=== PATIENT | male | born 2000 | race Caucasian/White ===

== ENCOUNTER 2018-06-29 10:09 | Emergency (ER) | payer MEDICAID, SELFPAY ==
[2018-06-29 10:15] VITALS: BP 120/63; PULSE 88; RESP 16; TEMP 36.7; O2SAT 98
--- NOTE | 2018-06-29 10:17 | DI.REPORT_ITS ---
SYMPTOM/DIAGNOSIS: BLUNT TRAUMA TO OUTSTRETCHED HAND. PAIN AT MCP, DIFFUSE WRIST, MED ELBOW LEFT FOREARM: Two views. No priors. No bone or joint abnormality is identified. The soft tissues are unremarkable IMPRESSION: Negative examination. LEFT WRIST: Four views. No acute fracture or dislocation is identified. The soft tissues are unremarkable. IMPRESSION: Negative examination.
[2018-06-29] MEDS: Ibuprofen 800 MG TAB PO (10:20)
--- NOTE | 2018-06-29 10:21 | ED.GENADUL_ITS ---
Disposition Clinical Impression: Sprain of other part of left wrist and hand, initial encounter Disposition: HOME Condition: Good Instructions: Wrist Sprain (ED) Additional Instructions: May remove wrist splint for bathing. Apply ice and use Tylenol and/or ibuprofen as needed for pain. Please follow-up with orthopedics. Call the office tomorrow at [phone]. See enclosed work note. Forms: Work Release Medical Decision Making - Radiology Data Radiology results: report reviewed, image reviewed - Medical Decision Making 17-year-old male with left wrist pain after blunt trauma to an outstretched left hand while sliding into base while playing softball 3 days ago. Diffusely tender along the affected joint and with mild medial left elbow tenderness. Patient given ibuprofen and ice, referred for x-ray. Reviewed x-rays with Dr. Cantrell. No evidence of malalignment or fracture. 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 I will place in removable wrist splint. Given the history of the injury I do feel it is reasonable he be followed up in orthopedics to ensure no ligamentous injury. History of Present Illness - General Chief complaint: Orthopedic Stated complaint: WRIST INJURY Time Seen by Provider: 06/29/18 10:14 Source: patient, RN notes reviewed Mode of arrival: ambulatory Limitations: no limitations - History of Present Illness Initial comments: Left wrist pain: 17-year-old male states that he was playing softball on Thursday. He was sliding into base with his left hand outstretched behind him on the opposing player fell on his left wrist and he felt a pop. Since that time he has had pain at his wrist that is worse with movement. It is, achy, constant, nonradiating. Improved with rest. There has been no associated numbness or tingling. He did not injure himself in any other way. - Related Data Lisdexamfetamine [Vyvanse] 1 tab-cap PO DAILY #30 tab-cap 06/04/18 Lisdexamfetamine [Vyvanse] 50 mg PO DAILY #30 tab-cap 06/04/18 Allergies Allergy/AdvReac Type Severity Reaction Status Date / Time No Known Allergies Allergy Unverified 06/29/18 10:21 Review of Systems Other: 6 systems reviewed, otherwise negative Past Medical History - Past Medical History Medical history: no medical history Surgical history: no surgical history - Social History Alcohol use: none Drug use: none General Exam - General Limitations: no limitations General appearance: alert, in no apparent distress - Head Head exam: Present: atraumatic, normocephalic - Eye Eye exam: Present: PERRL, EOMI - ENT ENT exam: Present: normal exam - Neck Neck exam: Present: normal inspection, full ROM - Respiratory Respiratory exam: Absent: respiratory distress - Extremities Exam Extremities exam: Present: tenderness, normal capillary refill, other (Left wrist is diffusely tender along the metacarpal junction. Mild tenderness left medial elbow. Patient is able to demonstrate index to thumb and okay sign, cross long finger over index, touch fifth digit thumb. Sensation intact throughout. Range of motion is intact but limited by pain. 2+ radial pulse bilateral upper extremity.) - Neurological Exam Neurological exam: Present: alert, oriented X3 - Psychiatric Psychiatric exam: Present: normal affect, normal mood - Skin Skin exam: Present: warm, dry, intact
== END 2018-06-29 11:00 | disposition home or self-care (01) ==
PROVIDERS: Emergency Provider Emergency Medicine; PCP Pediatrics
DX: S63.8X2A Sprain of other part of left wrist and hand, initial encounter (principal); W51.XXXA Accidental striking against or bumped into by another person, initial encounter; Y93.64 Activity, baseball
CPT/HCPCS: 29125; 99284; 73090; 73110; L3908

== ENCOUNTER → 2018-07-14 00:54 | Outpatient (CLI) | payer MEDICAID, SELFPAY ==
--- NOTE | 2018-07-14 11:00 | DI.REPORT_ITS ---
SYMPTOM/DIAGNOSIS: FX SCAPHOID LT WRIST, S62.002a LEFT WRIST MRI: 07/14 MRI examination of the carpus was performed utilizing multi-planar imaging. There is reportedly a clinical suspicion of scaphoid fracture. There is minimally abnormal signal in the scaphoid waist. No linear signal abnormality seen. No cortical signal disruption identified. No deformity of the bone. There is a 7 mm in diameter apparent ganglion cyst projected adjacent to the volar aspect of the radial styloid. No gross ligamentous or tendinous abnormality of the wrist seen. The remainder of the bones show normal signal except for some tiny presumed degenerative cysts of the capitate. CONCLUSION: No evidence of a scaphoid fracture. Minimal signal abnormalities in the scaphoid waist which could represent mild bony trabecular injury.
== END ==
PROVIDERS: PCP Pediatrics; Visit Provider Orthopaedic Surgery
DX: S62.002D Unspecified fracture of navicular [scaphoid] bone of left wrist, subsequent encounter for fracture with routine healing (principal); M67.432 Ganglion, left wrist
CPT/HCPCS: 73221

== ENCOUNTER 2018-08-19 11:31 | Emergency (ER) | payer MEDICAID, SELFPAY ==
[2018-08-19 11:39] VITALS: BP 146/81; PULSE 77; RESP 18; TEMP 37; O2SAT 95
== END 2018-08-19 12:54 ==
PROVIDERS: Emergency Provider Nurse Practitioner Acute Care; PCP Pediatrics
DX: R20.0 Anesthesia of skin (principal); Z53.21 Procedure and treatment not carried out due to patient leaving prior to being seen by health care provider
CPT/HCPCS: 99281

== ENCOUNTER 2018-10-24 20:26 | Emergency (ER) | payer MEDICAID, SELFPAY ==
[2018-10-24 20:31] VITALS: BP 133/67; PULSE 97; RESP 15; TEMP 37; O2SAT 98
--- NOTE | 2018-10-24 20:40 | DI.CT_ITS ---
SYMPTOMS/DIAGNOSIS: HEADACHE 2 WKS, BLURRY VISION CT BRAIN: Noncontrast. No priors. There is a normal hernadez/white matter differentiation. The ventricles are intact. The basilar cisterns are patent. No intracranial hemorrhage, infarct, midline shift or mass effect is identified. There is mucosal thickening seen in the visualized paranasal sinuses. No fluid levels are seen. The mastoid air cells are well pneumatized. The calvarium is intact. IMPRESSION: Paranasal sinusitis. No acute intracranial process.
--- NOTE | 2018-10-24 21:14 | DI.VRAD_ITS ---
EXAM: CT Head Without Intravenous Contrast EXAM DATE/TIME: 10/24/2018 8:43 PM CLINICAL HISTORY: 18 years old, male; Pain; Headache; Headache not specified; Patient HX: NEVAREZ x 2 weeks, blurry vision TECHNIQUE: Axial computed tomography images of the head/brain without intravenous contrast. All CT scans at this facility use at least one of these dose optimization techniques: automated exposure control; mA and/or kV adjustment per patient size (includes targeted exams where dose is matched to clinical indication); or iterative reconstruction. Coronal and sagittal reformatted images were created and reviewed. COMPARISON: No relevant prior studies available. FINDINGS: Brain: Unremarkable. No hemorrhage. No significant white matter disease. No edema. Ventricles: Unremarkable. No ventriculomegaly. Bones/joints: Unremarkable. No acute fracture. Sinuses: Mild mucosal thickening of right and left ethmoid sinuses and left maxillary sinus. No paranasal sinus fluid level. Mastoid air cells: Clear mastoids. Soft tissues: Unremarkable. IMPRESSION: No acute intracranial abnormality. Dictated and Authenticated by: Antony Bills MD. Ordering:BHAVYA SCHNEIDER MD
[2018-10-24] MEDS: Dexamethasone 10 MG/ML VIAL IVP (21:33)
[2018-10-24] MEDS: Ketorolac 15 MG/ML VIAL IVP (21:34)
[2018-10-24] MEDS: diphenhydrAMINE 25 MG CAP PO (21:34)
[2018-10-24] MEDS: Prochlorperazine 10 MG/2 ML VIAL IVP (21:35)
[2018-10-24 21:47] LABS: Abs Immature Grans 0.02 k/cumm (0.0-0.09); Absolute Basophil Count 0.03 k/cumm (0.0-0.2); Absolute Eosinophil Count 0.08 k/cumm (0.0-0.7); Absolute Monocyte Count 1.07 k/cumm (0.11-0.7); Absolute Neutrophil Count 8.11 k/cumm (1.2-6.7); Basophils % 0.3; Eosinophils % 0.7; HCT 42.2 % (40.0-50.0); HGB 14.5 g/dL (13.5-17.5); Immature Grans % 0.2; Lymphocytes % 16.2; Mean Corp. HGB Concentration 34.4 g/dL (32.0-36.0); Mean Corpuscular Hemoglobin 27.7 pg (27.0-33.0); Mean Corpuscular Volume 80.5 fL (80-95); Mean Platelet Volume 10.5 fL (8.0-11.0); Monocytes % 9.6; Platelet Count 262 x1000/uL (130-400); RBC 5.24 m/cumm (4.50-6.00); RBC Distribution Width 12.7 % (11.8-14.1); White Blood Cell Count 11.11 k/cumm (4.4-10.8)
--- NOTE | 2018-10-24 21:59 | W.ED.GENAD ---
Discharge Plan Disposition Patient Disposition: HOME Condition: Good Discharge Details Chief Complaint: Headache Clinical Impression: Sinusitis, Migraine Primary Care Provider: Deniz Terry ED Provider: Galindo Valdez Home Meds and New Rx's Prescriptions: New fluticasone 50 mcg/actuation spray,suspension 2 spray MARTIN DAILY Qty: 9.9 RF: 0 fexofenadine [Adelina Allergy] 60 mg tablet 60 mg PO BID Qty: 20 RF: 0 No Action lisdexamfetamine [Vyvanse] 50 mg capsule 50 mg PO DAILY MDD 1 Qty: 30 RF: 0 lisdexamfetamine [Vyvanse] 70 mg capsule 70 mg PO QAM MDD 1 Qty: 30 RF: 0 Discharge Instructions Instructions: Sinusitis (ED), Migraine Headache (ED) Additional Instructions: Please take the medication as directed. If your headache returns please take 1000 mg of Tylenol, and 800 mg of ibuprofen. If you notice any worsening of your symptoms, or any new symptoms such as vomiting, diarrhea, fever, chills, shortness of breath, chest pain, numbness, weakness, or fainting , please return immediately to the emergency department for reevaluation. Please follow up with your primary care provider as soon as possible for reassessment and reevaluation. As always, it was a pleasure participating in your medical care today. Referrals: Deniz Terry MD [Primary Care Provider] - Discharge Data Discharge Date/Time-TO BE ENTERED AT DEPARTURE: 10/24/18 22:34 Medical Decision Making This is a pleasant 18-year-old male who presents for evaluation of headache, and frontal sinus congestion. Headache has been present for the last few weeks, it is similar to headaches that he gets, but just longer than duration slightly more intense in severity. He also has associated sinus congestion, and some frontal sinus pressure. Physical exam demonstrates no focal neurologic deficits. No evidence of pre-or post septal edema. No evidence of toxic appearance. No fever, or tachycardia. Signs and symptoms are clinically inconsistent with a venous sinus thrombosis. Patient shows no clinical red flags for his headache with no nuchal rigidity, neck stiffness, worst headache of life, or neurologic deficits. Physical exam demonstrates normal neurologic exam with no other significant abnormalities aside for some mild frontal sinus tenderness. Patient has not had neuroimaging in the past. With the nature of his symptoms I do feel that one set of neuroimaging is reasonable. CT scan was performed and demonstrates no evidence of acute process. Patient was given a migraine cocktail, and on reassessment he states that he is feeling much better, his headache has resolved and he would like to go home. I do feel that migraine is a component of his symptomatology however I think that sinusitis is also a component with notable sinus congestion and nasal congestion on exam. We will give the patient instructions for Viviana pot, fluticasone nasal spray, and recommendation for antihistamine use. We discussed red flags for which to return and the patient understands. Diagnosis migraine headache and sinusitis and nasal congestion. I have extensively reviewed the treatment plan and discharge instructions with the patient and their family. I have addressed all patient concerns at this time. The patient and family was made aware of what symptoms to monitor for that would warrant a return to the emergency department. Discussed the plan with the patient and family, they demonstrate verbal understanding and agreement with our assessment and plan at this time. FINDINGS: Brain: Unremarkable. No hemorrhage. No significant white matter disease. No edema. Ventricles: Unremarkable. No ventriculomegaly. Bones/joints: Unremarkable. No acute fracture. Sinuses: Mild mucosal thickening of right and left ethmoid sinuses and left maxillary sinus. No paranasal sinus fluid level. Mastoid air cells: Clear mastoids. Soft tissues: Unremarkable. IMPRESSION: No acute intracranial abnormality. HPI General Date/Time Provider Initiated Documentation: 10/24/18 20:30. HPI Narrative: This is a pleasant 18-year-old male with a past medical history of ADHD, and occasional headaches who presents today for evaluation of headache. Patient states that over the last 3 weeks he has had a mild headache, gradually worsening. It has associated tinnitus, as well as aversion to light and loud noises. It is been made worse as he has developed some congestion in the front of his face, over his frontal and maxillary sinuses. He does admit to mild runny nose and congestion, but denies any cough, chills. Patient describes the headache as the entirety of his head, but now focusing behind the right eye. He admits to some mild pressure. He states that he has had a headache similar to this in the past, just not to this duration or severity. The patient denies any headache red flags of worst headache of life, thunderclap headache, neck stiff, fever, chills, concerning family history of polycystic kidney disease, Marfan syndrome, Emelyn-Danlos syndrome, abdominal aortic aneurysm, aortic dissection, or intracranial aneurysm. Patient denies any other complaints at this time. The patient has taken some Tylenol, and this is mildly improved his symptoms. Patient denies any recent surgeries, or IV or illicit drug use. He denies any other sick contacts. Related Data Home Medications Medication Instructions Recorded Confirmed lisdexamfetamine 50 mg capsule 50 mg PO DAILY #30 cap MDD 1 10/05/18 10/05/18 lisdexamfetamine 70 mg capsule 70 mg PO QAM #30 cap MDD 1 10/05/18 10/05/18 fexofenadine [Adelina Allergy] 60 mg PO BID #20 tab 10/24/18 fluticasone 2 spray MARTIN DAILY #9.9 gm 10/24/18 Previous Rx's Medication Instructions Recorded lisdexamfetamine 50 mg capsule 50 mg PO DAILY #30 cap MDD 1 10/05/18 lisdexamfetamine 70 mg capsule 70 mg PO QAM #30 cap MDD 1 10/05/18 fexofenadine [Adelina Allergy] 60 mg PO BID #20 tab 10/24/18 fluticasone 2 spray MARTIN DAILY #9.9 gm 10/24/18 Allergies Allergy/AdvReac Type Severity Reaction Status Date / Time No Known Allergies Allergy Unverified 10/24/18 20:35 General Stated Complaint: Headache SHAWN: 2 Review of Systems Review of Systems All systems reviewed & are unremarkable except as noted in HPI and below PFSH Attention deficit hyperactivity disorder (ADHD), predominantly hyperactive type (Acute 04/14/17) ADHD (attention deficit hyperactivity disorder) Family History Mother Healthy adult on routine physical examination Father Healthy adult on routine physical examination Circumcision (~10/05/18) Family History Mother Healthy adult on routine physical examination Father Healthy adult on routine physical examination Medical History Attention deficit hyperactivity disorder (ADHD), predominantly hyperactive type (Acute 04/14/17) ADHD (attention deficit hyperactivity disorder) Social History Smoking/Tobacco Use Status: Never Surgical History Circumcision (~10/05/18) Social History Smoking/Tobacco Use Status: Never Exam Narrative Exam Narrative: 1.Const: Well-nourished, Well-developed, appearing stated age 2.Eyes: Eyes: EOMI, PERRL, Peripheral vision intact. No nystagmus. Fundoscopic exam shows normal optic discs and normal vasculature. No external signs of preseptal cellulitis, no redness around the eye, no proptosis. No hyphema, no signs of trauma around the eye, no periorbital emphysema. Visual acuity as documented in chart and is normal bilaterally 3.ENT: Atraumatic external nose and ears. Moist MM. Neck: Symmetric, trachea midline, No thyromegaly. Patient demonstrates good movement of cervical neck. There is no nuchal rigidity, no nuchal tenderness. Patient is able to flex the neck without any difficulty or significant pain. Negative Kernig's and Brudzinski sign. 4.CVS: +S1/S2, No murmurs or gallops. Peripheral pulses 2+ and equal in all extremities. Brisk capillary refill in all extremities. 5.RESP: Unlabored respiratory effort. Clear to auscultation bilaterally. No wheezes rales or rhonchi 6.GI: Soft, Nontender/Nondistended, No hepatosplenomegaly. No guarding or rebound. 7.MSK: Normocephalic/Atraumatic, Extremities w/o deformity or ttp No cyanosis or clubbing, Normal movement of all extremities 8.Skin: Warm, Dry. No rashes or lesions. 9.Neuro: filling machine tender II-XII grossly intact. Sensation grossly intact, no focal neurologic deficits. All 6 cardinal planes of vision are fully intact. No evidence of rotatory or vertical nystagmus. The patient demonstrated a normal [id number], good dexterity. There was no evidence of dysdiadochokinesia. Patient was able to ambulate without difficulty. There was no wide-based gait. Romberg, and [id number] are both normal on testing. Sensation was intact bilaterally as well as muscle strength bilaterally for all extremities. Patient was able to verbalize butter cup with no slurring, or miss pronunciation. 10.Psych: (AAO) x3. Appropriate mood and affect Course Vital Signs Temperature 37.0 C 10/24/18 20:31 Pulse 97 H 10/24/18 20:31 Respiratory Rate 15 12 20:31 Blood Pressure 133/67 12 20:31 Pulse Oximetry 98 10/24/18 20:31 Temperature 37.0 C 10/24/18 20:31 Temperature Source Temporal Artery Scan 10/24/18 20:31 Pulse 97 H 10/24/18 20:31 Respiratory Rate 15 10/24/18 20:31 Respiratory Effort Non-Labored 10/24/18 20:37 Blood Pressure 133/67 10/24/18 20:31 Blood Pressure Position Sitting 10/24/18 20:31 Pulse Oximetry 98 10/24/18 20:31 Oxygen Delivery Method Room Air 10/24/18 20:31 Oxygen Flow Rate 0 10/24/18 20:31 Pain Level 6 10/24/18 20:38 Lab/Test Results Lab/Test Results: Laboratory Tests Range/Units 10/24/18 20:50 WBC (4.4-10.8) k/cumm 11.11 H RBC (4.50-6.00) m/cumm 5.24 Hgb (13.5-17.5) g/dL 14.5 Hct (40.0-50.0) % 42.2 MCV (80-95) fL 80.5 MCH (27.0-33.0) pg 27.7 MCHC (32.0-36.0) g/dL 34.4 RDW (11.8-14.1) % 12.7 Plt Count (130-400) x1000/uL 262 MPV (8.0-11.0) fL 10.5 Immature Gran % 0.2 Neutrophils % 73.0 Lymphocytes % 16.2 Monocytes % 9.6 Eosinophils % 0.7 Basophils % 0.3 Absolute Neutrophils (1.2-6.7) k/cumm 8.11 H Absolute Lymphocytes (1.2-3.4) k/cumm 1.80 Absolute Monocytes (0.11-0.7) k/cumm 1.07 H Absolute Eosinophils (0.0-0.7) k/cumm 0.08 Absolute Basophils (0.0-0.2) k/cumm 0.03
[2018-10-24 22:00] LABS: ALT 22 U/L (12-78); AST 17 U/L (15-37); Albumin 4.2 g/dL (3.4-5.0); Alkaline Phosphatase 113 U/L (46-116); Anion Gap 10.4 mmol/L (3-11); BUN 14 mg/dL (7-18); Bilirubin, Total 0.5 mg/dL (0.2-1.0); CO2 28.6 mmol/L (21.0-32.0); CREATININE 1.05 mg/dL (0.70-1.30); Calcium 8.8 mg/dL (8.5-10.1); Chloride 101 mmol/L (98-107); Glucose 100 mg/dL (70-100); Potassium 3.2 mmol/L (3.5-5.1); Sodium 140 mmol/L (136-145); Total Protein 8.1 g/dL (6.4-8.2)
[2018-10-24 22:21] VITALS: BP 121/65; PULSE 95; RESP 15; TEMP 37; O2SAT 98
== END 2018-10-24 22:34 | disposition home or self-care (01) ==
PROVIDERS: Emergency Provider Student in an Organized Health Care Education/Training Program; PCP Pediatrics
DX: J01.90 Acute sinusitis, unspecified (principal); G43.909 Migraine, unspecified, not intractable, without status migrainosus; H93.19 Tinnitus, unspecified ear
CPT/HCPCS: 36415; 80053; 96374; 96375; 99284; 70450; 85025; 99285; J0780; J1100; J1885

== ENCOUNTER 2019-06-21 13:52 | Outpatient (CLI) | payer MEDICAID, SELFPAY ==
--- NOTE | 2019-06-21 15:30 | DI.RAD_ITS ---
SYMPTOMS/DIAGNOSIS: HYPEREXTENSION INJURY OF RIGHT WRIST, PAIN, M25.531 RIGHT WRIST: Three views. No priors. There is a fracture seen in the mid shaft of the right 5th metacarpal. The fracture shows mild volar angulation. There is a callus formation about the fracture consistent with interval healing. No acute fracture or dislocation is identified. No radiopaque foreign bodies are seen in the soft tissues. IMPRESSION: 1. No acute fracture. 2. Healing right 5th metacarpal fracture.
== END 2019-06-21 14:12 ==
PROVIDERS: PCP Family Medicine; Visit Provider Nurse Practitioner Family
DX: M25.531 Pain in right wrist (principal); S62.356D Nondisplaced fracture of shaft of fifth metacarpal bone, right hand, subsequent encounter for fracture with routine healing
CPT/HCPCS: 73110

== ENCOUNTER 2019-07-25 13:03 | Emergency (ER) | payer MEDICAID, SELFPAY ==
[2019-07-25 13:08] VITALS: BP 117/70; PULSE 86; RESP 16; TEMP 36.9; O2SAT 97
--- NOTE | 2019-07-25 13:41 | ED.GENADUL_ITS ---
Discharge Plan Disposition Patient Disposition: AGAINST MEDICAL ADVICE Condition: Fair Discharge Details Chief Complaint: Cellulitis Clinical Impression: Neck pain Primary Care Provider: Tom Hastings ED Provider: Yadira Jacobs Home Meds and New Rx's Prescriptions: New doxycycline hyclate 100 mg capsule 100 mg PO BID Qty: 19 RF: 0 Continued Vyvanse 70 mg capsule 70 mg PO DAILY MDD 120mg Qty: 30 RF: 0 Vyvanse 50 mg capsule 50 mg PO DAILY MDD 120mg Qty: 30 RF: 0 No Action gabapentin 300 mg capsule 300 mg PO TID Qty: 30 RF: 0 clindamycin HCl 150 mg capsule 450 mg PO TID 10 Days Qty: 90 RF: 0 prednisone 50 mg tablet 50 mg PO DAILY Qty: 7 RF: 0 Discharge Instructions Instructions: Abscess (ED), Neck Pain (ED) Additional Instructions: You have elected to leave the emergency department AGAINST MEDICAL ADVICE. The risks of doing so are and permanent disability. You may return to the emergency department for further evaluation and treatment at any time if you change your mind. Please return immediately to the emergency department if you develop any new or worsening symptoms or if you become otherwise concerned. It is extremely important that you call soon as possible to make an appointment to be seen in follow-up for this visit by your primary care doctor. Referrals: Tom Hastings [Primary Care Provider] - Discharge Data Discharge Date/Time-TO BE ENTERED AT DEPARTURE: 07/25/19 15:44 Medical Decision Making Davide Adrian 18 y/o man with history of ADHD who presented to the emergency department with rash and pain to her neck after sustaining a cut from an unknown source approximate 4 days ago. On exam patient is very well and nontoxic appearing. There is mild erythema and edema of the left earlobe, earlobe is tender to palpation, no tenderness or overlying skin changes of the cartilage. Bilateral TMs and canals are normal. There is tenderness and induration of the neck just inferior to the ear with mild overlying erythema. No apparent abscess on inspection. TMJ is nontender to palpation. There is no trismus. No mastoid tenderness to palpation bilaterally. Oropharynx is normal without edema or lesion. Full range of motion of the neck, mild pain with lateral rotation to the left. Neck is supple without meningismus. Concern for cellulitis versus potential abscess of the underlying soft tissue. Exam/history is not consistent with impending airway compromise, sepsis, meningitis, mastoiditis, acute emergent intracranial process. [id number] bedside ultrasound shows approximately 1 x 3 cm fluid collection without blood flow and a depth of 1 cm in the neck just inferior to the earlobe. Concern for possible deep space infection given no clear skin abscess on exam, sore throat, pain with neck motion. Plan for CT soft tissue neck, screening labs, IV placement. Patient states that he is very hungry and would prefer to go home and eat. He states that he may come back at some time for further evaluation if he is not feeling better. I had a lengthy discussion with the patient stressing the risks of leaving AGAINST MEDICAL ADVICE, including and permanent disability. Patient verbalized understanding of the risks and continue to wish to leave, stating that he would like to get food. I did offer patient food here, which she declined and continues to wish to leave AGAINST MEDICAL ADVICE. Patient has decision-making capacity. I had a lengthy discussion with the patient regarding return to emergency department precautions, that he may return to emergency department anytime if he changes his mind. And importance of outpatient follow- up. Plan for doxycycline. Patient verbalized understanding of the plan. All questions were answered. Patient was discharged home with clear plan for outpatient follow-up. Medical Records Medical records reviewed: Yes I reviewed the patient's medical records. Lab Data Lab results reviewed: Yes I reviewed the patient's lab results. Laboratory Tests Range/Units 07/25/19 07/25/19 15:16 15:16 WBC Cancelled RBC Cancelled Hgb Cancelled Hct Cancelled MCV Cancelled MCH Cancelled MCHC Cancelled RDW Cancelled Plt Count Cancelled MPV Cancelled Immature Gran % Cancelled Neutrophils % Cancelled Band Neutrophils % Cancelled Lymphocytes % Cancelled Atypical Lymphs % Cancelled Monocytes % Cancelled Eosinophils % Cancelled Basophils % Cancelled Metamyelocytes % Cancelled Myelocytes % Cancelled Promyelocytes % Cancelled Absolute Neutrophils Cancelled Absolute Lymphocytes Cancelled Absolute Monocytes Cancelled Absolute Eosinophils Cancelled Absolute Basophils Cancelled Nucleated RBCs Cancelled Differential Comment Cancelled Other Cell Type Cancelled RBC Morphology Cancelled Polychromasia Cancelled Hypochromasia Cancelled Poikilocytosis Cancelled Basophilic Stippling Cancelled Anisocytosis Cancelled Microcytosis Cancelled Macrocytosis Cancelled Spherocytes Cancelled Target Cells Cancelled Tear Drop Cells Cancelled Ovalocytes Cancelled Stomatocytes Cancelled Andre-Eskridge Bodies Cancelled [place] Cells Cancelled Acanthocytes (Spur) Cancelled Schistocytes Cancelled Sodium Cancelled Potassium Cancelled Chloride Cancelled Carbon Dioxide Cancelled Anion Gap Cancelled BUN Cancelled Creatinine Cancelled Estimated GFR/1.73 m2 Cancelled Glucose Cancelled Calcium Cancelled Total Bilirubin Cancelled AST Cancelled ALT Cancelled Alkaline Phosphatase Cancelled Total Protein Cancelled Albumin Cancelled HPI General Mode of arrival: ambulatory . Date/Time Provider Initiated Documentation: 07/25/19 13:41 . Limitations to Documentation: no limitations . Information obtained by: patient, RN notes reviewed and old records reviewed . HPI Narrative: Davide Adrian is a 18 y/o man with history of ADHD presenting to the emergency department with left-sided neck pain. Patient reports that approximately 4 days ago he noticed a cut beneath his left ear. He is unclear what caused the cut to begin with. Patient reports that over the past 4 days he has had progressive aching pain of his neck just inferior to the ear, pain radiates to his left jaw. He has also had pain and redness of his earlobe, and mild sore throat. He denies inner ear pain, drainage from the ear, fevers, vomiting, diarrhea, any other pain, difficulty swallowing, other rash. Has been eating and drinking as usual. Has been going about his daily activities as usual. No recent illness. Related Data Home Medications Medication Instructions Recorded Confirmed lisdexamfetamine 50 mg capsule 50 mg PO DAILY #30 cap MDD 120mg 06/27/19 07/31/19 lisdexamfetamine 70 mg capsule 70 mg PO DAILY #30 cap MDD 120mg 06/27/19 07/31/19 doxycycline hyclate 100 mg PO BID #19 cap 07/25/19 07/31/19 prednisone 50 mg PO DAILY #7 tab 07/26/19 07/31/19 clindamycin HCl 450 mg PO TID 10 Days #90 cap 07/31/19 gabapentin 300 mg PO TID #30 cap 07/31/19 Previous Rx's Medication Instructions Recorded lisdexamfetamine 50 mg capsule 50 mg PO DAILY #30 cap MDD 120mg 06/27/19 lisdexamfetamine 70 mg capsule 70 mg PO DAILY #30 cap MDD 120mg 06/27/19 doxycycline hyclate 100 mg PO BID #19 cap 07/25/19 prednisone 50 mg PO DAILY #7 tab 07/26/19 clindamycin HCl 450 mg PO TID 10 Days #90 cap 07/31/19 gabapentin 300 mg PO TID #30 cap 07/31/19 Allergies Allergy/AdvReac Type Severity Reaction Status Date / Time No Known Allergies Allergy Verified 07/26/19 11:49 General Stated Complaint: Cellulitis SHAWN: 3 Review of Systems Review of Systems Constitutional: denies fevers Eyes: denies eye pain ENT: denies facial pain, dental pain, reports outer left ear pain, left neck pain, sore throat Cardiovascular: denies chest pain Respiratory: denies SOB, cough GI: denies abdominal pain, vomiting, diarrhea : denies flank pain MSK: denies back pain, neck pain, arthralgias, myalgias Skin: reports rash as per HPI Neuro: denies headaches, numbness, weakness [facility] Medical History ADHD (attention deficit hyperactivity disorder) Attention deficit hyperactivity disorder (ADHD), predominantly hyperactive type (Acute 04/14/17) Social History Smoking/Tobacco Use Status: Current every day Tobacco Type: e-cigarettes Quit status: not considering quitting Alcohol Intake: current Alcohol Intake frequency: a few times a week Details: couple beers or twisted teas on the weekends Drug use: Never Substance use type: does not use Adopted: Yes Household members: family Housing: house Pets and animals: No Sexually active: Yes Do you think of yourself as: straight/heterosexual Current gender identity: male Duration: > 90 minutes/day Frequency: daily Yeimi/Adventism: No preference Special yeimi needs: No Seatbelt use: always Helmet use: Yes Do you feel safe at home: Yes Do you feel safe in your relationship?: Yes Exam Narrative Exam Narrative: Constitutional: well and [id number], pleasant, conversing normally HENT: head atraumatic/normocephalic, mucous membranes moist, mild erythema and edema of the left earlobe, earlobe is tender to palpation, no tenderness or overlying skin changes of the cartilage. Bilateral TMs and canals are normal. Tenderness and induration of the neck just inferior to the ear with mild overlying erythema. No apparent abscess on inspection. TMJ is nontender to palpation. There is no trismus. No mastoid tenderness to palpation bilaterally. Oropharynx is normal without edema or lesion Eyes: conjunctiva normal, sclera normal, pupils 3mm b/l Neck: no stridor, trachea midline, full range of motion of the neck, mild pain with lateral rotation to the left. Neck is supple without meningismus Chest: normal inspection Resp: normal work of breathing, LCTAB Cardio: normal rate, normal rhythm, no murmur appreciated Back: normal inspection, no rash Skin: warm, dry, normal color, no rash Neuro: alert, not altered, grossly non-focal, normal tone Ext: Moving all extremities equally Psych: normal mood, normal affect, normal behavior Course Vital Signs Temperature 36.9 C 07/25/19 13:08 Pulse 86 07/25/19 13:08 Respiratory Rate 16 07/25/19 13:08 Blood Pressure 117/70 07/25/19 13:08 Pulse Oximetry 97 07/25/19 13:08 Temperature 36.9 C 07/25/19 13:08 Temperature Source Skin 07/25/19 13:08 Pulse 86 07/25/19 13:08 Respiratory Rate 16 07/25/19 13:08 Respiratory Effort Non-Labored 07/25/19 13:12 Blood Pressure 117/70 07/25/19 13:08 Blood Pressure Position Sitting 07/25/19 13:08 Pulse Oximetry 97 07/25/19 13:08 Oxygen Delivery Method Room Air 07/25/19 13:08 Oxygen Flow Rate 0 07/25/19 13:08 Pain Level 7 07/25/19 13:08
--- NOTE | 2019-07-25 15:34 | NUR.NOTE ---
Nursing Note: made aware pt wants to leave AMA. in to talk to pt.
[2019-07-25 15:38] VITALS: PULSE 65; RESP 16; O2SAT 97
[2019-07-25] MEDS: Doxycycline Hyclate 100 MG CAP (15:38)
== END 2019-07-25 15:44 | disposition left against medical advice (07) ==
PROVIDERS: Emergency Provider Student in an Organized Health Care Education/Training Program; PCP Family Medicine
DX: H60.12 Cellulitis of left external ear (principal); L03.221 Cellulitis of neck; M54.2 Cervicalgia; Z53.29 Procedure and treatment not carried out because of patient's decision for other reasons
CPT/HCPCS: 80053; 99283; 85025

== ENCOUNTER 2019-07-26 11:36 | Emergency (ER) | payer MEDICAID, SELFPAY ==
[2019-07-26 11:46] VITALS: BP 133/44; PULSE 70; RESP 16; TEMP 36.7; O2SAT 98
--- NOTE | 2019-07-26 12:01 | DI.CT_ITS ---
SYMPTOMS/DIAGNOSIS: LEFT NECK SWELLING, PAIN, ? ABSCESS NECK CT: A contrast enhanced exam was performed. The parotid, submandibular and thyroid glands appear normal. No tonsillar or adenoid enlargement is seen. There is no evidence of an abscess. There are mildly enlarged cervical lymph nodes, presumably reactive. The visualized portions of the lungs appear clear. The carotid and vertebral arteries are normal in diameter. The orbits are unremarkable. There is some mucosal thickening of the ethmoid and maxillary sinuses. The mastoid air cells appear clear. IMPRESSION: No evidence of an abscess. Mildly enlarged bilateral cervical lymph nodes are seen.
--- NOTE | 2019-07-26 12:03 | ED.GENADUL_ITS ---
Discharge Plan Disposition Patient Disposition: HOME Condition: Stable Discharge Details Chief Complaint: RashLesion Clinical Impression: Shingles Primary Care Provider: Tom Hastings ED Provider: Derrell Betancur Home Meds and New Rx's Prescriptions: New acyclovir 800 mg tablet 800 mg PO Q4H 7 Days Qty: 42 RF: 0 prednisone 50 mg tablet 50 mg PO DAILY Qty: 7 RF: 0 Continued Vyvanse 70 mg capsule 70 mg PO DAILY MDD 120mg Qty: 30 RF: 0 Vyvanse 50 mg capsule 50 mg PO DAILY MDD 120mg Qty: 30 RF: 0 doxycycline hyclate 100 mg capsule 100 mg PO BID Qty: 19 RF: 0 Discharge Instructions Instructions: [place] (ED) Additional Instructions: if not better within a week see your primary care provider if you feel you are becoming more ill, have difficulty breathing or inability to swallow liquids return to the emergency department Medical Decision Making pt has had left inferior ear/neck pain and some swelling for a few days. Was seen yesterday and was going to have a CT done but left AMA prior to this being done and came back today. He does have vesciles on an erythematous base at the entrance of the left ear canal, no discharge and tm's appera normal. Does have some mild swelling just inferior to the left ear without fluctuance. Suspect shingles but given findings of swelling will image to eval for possible abscess pt's labs unremarkable and Per no acute findings on CT. Will d/c on acylovir and steroids and advised f/u with pcp and return precautions given Differential Diagnosis abscess, shingles Imaging Data Radiologic Study: Attestation: I personally reviewed and interpreted this imaging study as follows: Imaging: CT Scan Radiologist's impression: no acute findings per Lab Data Lab results reviewed: Yes I reviewed the patient's lab results. HPI General Mode of arrival: ambulatory . Date/Time Provider Initiated Documentation: 07/26/19 11:57 . Limitations to Documentation: no limitations . Information obtained by: patient . History of Present Illness 18 year old M presents to the emergency department with the chief complaint of left neck pain/swelling, and is localized to the neck. Patient reports no radiation. Patient started experiencing this day(s) (2) and it has been constant. No relieving factors improve symptom(s), Patient did receive the following treatments prior to arrival, none Related Data Home Medications Medication Instructions Recorded Confirmed lisdexamfetamine 50 mg capsule 50 mg PO DAILY #30 cap MDD 120mg 06/27/19 07/26/19 lisdexamfetamine 70 mg capsule 70 mg PO DAILY #30 cap MDD 120mg 06/27/19 07/26/19 doxycycline hyclate 100 mg PO BID #19 cap 07/25/19 07/26/19 acyclovir 800 mg PO Q4H 7 Days #42 tab 07/26/19 prednisone 50 mg PO DAILY #7 tab 07/26/19 Previous Rx's Medication Instructions Recorded lisdexamfetamine 50 mg capsule 50 mg PO DAILY #30 cap MDD 120mg 06/27/19 lisdexamfetamine 70 mg capsule 70 mg PO DAILY #30 cap MDD 120mg 06/27/19 doxycycline hyclate 100 mg PO BID #19 cap 07/25/19 acyclovir 800 mg PO Q4H 7 Days #42 tab 07/26/19 prednisone 50 mg PO DAILY #7 tab 07/26/19 Allergies Allergy/AdvReac Type Severity Reaction Status Date / Time No Known Allergies Allergy Verified 07/26/19 11:49 General Stated Complaint: RashLesion SHAWN: 3 Review of Systems Review of Systems All systems reviewed & are unremarkable except as noted in HPI and below Constitutional Denies chills, Denies fever(s) and Denies weakness Cardiovascular Denies chest pain and Denies dyspnea Respiratory Denies cough and Denies dyspnea Gastrointestinal Denies abdominal pain, Denies nausea and Denies vomiting Musculoskeletal Denies joint swelling Neurologic Denies weakness [facility] Social History Smoking/Tobacco Use Status: Current every day Tobacco Type: e-cigarettes Quit status: not considering quitting Alcohol Intake: current Details: couple beers or twisted teas on the weekends Drug use: Never Substance use type: does not use Adopted: Yes Household members: family Housing: house Pets and animals: No Sexually active: Yes Do you think of yourself as: straight/heterosexual Current gender identity: male Duration: > 90 minutes/day Frequency: daily Yeimi/Mu-Ism: No preference Special yeimi needs: No Seatbelt use: always Helmet use: Yes Do you feel safe at home: Yes Do you feel safe in your relationship?: Yes Exam Const General: no acute distress Orientation: alert HENMT Head: normal to inspection Ears: TM's normal bilaterally General nose exam: external nose normal Mouth: moist mucous membranes Eyes General: appearance normal, both eyes and all related structures Neck Neck: normal visual inspection Resp Effort & Inspection: normal respiratory effort and able to speak in complete sentences Cardio Rate: regular rate Skin General skin exam: elasticity normal Neuro General: alert and oriented x3 Extrem General: normal to inspection Psych Mental Status: mental status grossly normal Course Vital Signs Temperature 36.7 C 07/26/19 11:46 Pulse 70 07/26/19 11:46 Respiratory Rate 16 07/26/19 11:46 Blood Pressure 133/44 L 07/26/19 11:46 Pulse Oximetry 98 07/26/19 11:46 Temperature 36.7 C 07/26/19 11:46 Temperature Source Skin 07/26/19 11:46 Pulse 70 07/26/19 11:46 Respiratory Rate 16 07/26/19 11:46 Respiratory Effort Non-Labored 07/26/19 11:46 Blood Pressure 133/44 L 07/26/19 11:46 Blood Pressure Position Sitting 07/26/19 11:46 Pulse Oximetry 98 07/26/19 11:46 Oxygen Delivery Method Room Air 07/26/19 11:46 Oxygen Flow Rate 0 07/26/19 11:46 Pain Level 7 07/26/19 11:46
[2019-07-26 12:28] LABS: Abs Immature Grans 0.02 k/cumm (0.0-0.09); Absolute Basophil Count 0.02 k/cumm (0.0-0.2); Absolute Eosinophil Count 0.29 k/cumm (0.0-0.7); Absolute Lymphocyte Count 1.27 k/cumm (1.2-3.4); Absolute Monocyte Count 0.71 k/cumm (0.11-0.7); Basophils % 0.3; Eosinophils % 4.3; HCT 43.2 % (40.0-50.0); HGB 15.1 g/dL (13.5-17.5); Immature Grans % 0.3; Lymphocytes % 18.6; Mean Corpuscular Volume 80.1 fL (80-95); Mean Platelet Volume 9.7 fL (8.0-11.0); Monocytes % 10.4; Neutrophils % 66.1; Platelet Count 226 x1000/uL (130-400); RBC 5.39 m/cumm (4.50-6.00); White Blood Cell Count 6.81 k/cumm (4.4-10.8)
[2019-07-26] MEDS: Normal Saline Flush 10 ML SYR IVP (12:31)
[2019-07-26 12:42] LABS: ALT 27 U/L (16-63); AST 25 U/L (15-37); Albumin 4.4 g/dL (3.4-5.0); Alkaline Phosphatase 91 U/L (46-116); BUN 15 mg/dL (7-18); Bilirubin, Total 0.8 mg/dL (0.2-1.0); CREATININE 1.01 mg/dL (0.70-1.30); Calcium 9.2 mg/dL (8.5-10.1); Chloride 104 mmol/L (98-107); Glucose 92 mg/dL (70-100); Sodium 139 mmol/L (136-145); Total Protein 7.9 g/dL (6.4-8.2)
[2019-07-26] MEDS: Omnipaque 350 MG/ML 100 ML BTL IJ (12:47)
[2019-07-26 14:00] VITALS: BP 123/66; PULSE 61; RESP 14; TEMP 36.9; O2SAT 99
[2019-07-26 14:04] VITALS: BP 123/66; PULSE 61; RESP 14; TEMP 36.9; O2SAT 99
--- NOTE | 2019-07-26 15:31 | DI.VRAD_ITS ---
EXAM: CT Neck With Contrast EXAM DATE/TIME: 07/26/2019 12:46 PM CLINICAL HISTORY: 18 years old, male; Other: Left sided swelling, R/O abscess TECHNIQUE: Imaging protocol: Computed tomography images of the neck with intravenous contrast. Radiation optimization: All CT scans at this facility use at least one of these dose optimization techniques: automated exposure control; mA and/or kV adjustment per patient size (includes targeted exams where dose is matched to clinical indication); or iterative reconstruction. COMPARISON: No relevant prior studies available. FINDINGS: Sinuses: Mild mucosal thickening of the maxillary and ethmoid sinuses is present bilaterally. Nasopharynx: Unremarkable. Oropharynx: Unremarkable. No significant tonsillar enlargement. Hypopharynx: Unremarkable Larynx: Unremarkable. Normal epiglottis. Retropharyngeal space: Normal. No retropharyngeal abscess. Submandibular/Parotid glands: Normal. Glands are normal in size. Thyroid: Normal. No enlarged or calcified nodules. Lymph nodes: Multiple small shotty lymph nodes are present in the anterior and posterior cervical triangles bilaterally. Trachea: Visualized trachea is unremarkable. Lungs: Unremarkable as visualized. Bones/joints: Unremarkable. No acute fracture. Soft tissues: No CT evidence of an abscess in the superficial or deep soft tissues of the neck. IMPRESSION: 1. Multiple small shotty lymph nodes are present in the anterior and posterior cervical triangles bilaterally. 2. No CT evidence of an abscess in the superficial or deep soft tissues of the neck. 3. Mild mucosal thickening of the maxillary and ethmoid sinuses is present bilaterally. Dictated and Authenticated by: Alex Alexandra MD. Ordering:BONNIE Dove MD
== END 2019-07-26 14:10 | disposition home or self-care (01) ==
PROVIDERS: Emergency Provider Emergency Medicine; PCP Family Medicine
DX: B02.9 Zoster without complications (principal)
CPT/HCPCS: 36415; 70491; 80053; 99285; 85025; 99284; J3490

== ENCOUNTER 2019-07-31 22:09 | Emergency (ER) | payer MEDICAID, SELFPAY ==
[2019-07-31 22:13] VITALS: BP 111/81; PULSE 83; RESP 18; TEMP 36.6; O2SAT 98
--- NOTE | 2019-07-31 22:33 | ED.GENADUL_ITS ---
Discharge Plan Disposition Patient Disposition: HOME Condition: Stable Discharge Details Chief Complaint: GenMedical Clinical Impression: Shingles Primary Care Provider: Tom Hastings ED Provider: Derrell Betancur Home Meds and New Rx's Prescriptions: New gabapentin 300 mg capsule 300 mg PO TID Qty: 30 RF: 0 clindamycin HCl 150 mg capsule 450 mg PO TID 10 Days Qty: 90 RF: 0 Continued Vyvanse 70 mg capsule 70 mg PO DAILY MDD 120mg Qty: 30 RF: 0 Vyvanse 50 mg capsule 50 mg PO DAILY MDD 120mg Qty: 30 RF: 0 doxycycline hyclate 100 mg capsule 100 mg PO BID Qty: 19 RF: 0 acyclovir 800 mg tablet 800 mg PO Q4H 7 Days Qty: 42 RF: 0 prednisone 50 mg tablet 50 mg PO DAILY Qty: 7 RF: 0 Discharge Instructions Instructions: Shingles (ED) Additional Instructions: your rash still appears to be shingles follow up as scheduled with your primary care provider if you finish the doxycycline and the ear lobe is still very swollen, red and warm to touch start the clindamycin Medical Decision Making 19 yo male who was put on acyclovir and prednisone for shingles last week comes in with continued rash around left ear lobe. HE states he has crusting that is coming off and some discomfort radiating on the skin out, no fevers or systemic symptoms or vision changes. When Is aw him last he had a vescicular rash just outside entrance to left ear canal. It is now crusted over in this area without vesicles and has mild clear dishcarge from the area, no purulence. The left ear lobe is still red and swollen as well. HE was put on doxy for possible cellulitis at the visit prior to last and is still taking this. I advised this is likely the natural progression of the shingles. I am going to prescribe clindamycin and advised only fill it if redness worsens or not better by the time he finishes doxy and f/u with pcp, return precautions given. No sever epain or crepitus to suggest nec fasc. Differential Diagnosis shingles, cellulitis HPI General Mode of arrival: ambulatory . Date/Time Provider Initiated Documentation: 07/31/19 22:09 . Limitations to Documentation: no limitations . Information obtained by: patient . History of Present Illness 19 year old M presents to the emergency department with the chief complaint of left ear rash, described as moderate, Quality is described as aching and sharp, Patient started experiencing this day(s) (6) and it has been constant. No relieving factors improve symptom(s), No exacerbating factors reported . Related Data Home Medications Medication Instructions Recorded Confirmed lisdexamfetamine 50 mg capsule 50 mg PO DAILY #30 cap MDD 120mg 06/27/19 07/31/19 lisdexamfetamine 70 mg capsule 70 mg PO DAILY #30 cap MDD 120mg 06/27/19 07/31/19 doxycycline hyclate 100 mg PO BID #19 cap 07/25/19 07/31/19 acyclovir 800 mg PO Q4H 7 Days #42 tab 07/26/19 07/31/19 prednisone 50 mg PO DAILY #7 tab 07/26/19 07/31/19 clindamycin HCl 450 mg PO TID 10 Days #90 cap 07/31/19 gabapentin 300 mg PO TID #30 cap 07/31/19 Previous Rx's Medication Instructions Recorded lisdexamfetamine 50 mg capsule 50 mg PO DAILY #30 cap MDD 120mg 06/27/19 lisdexamfetamine 70 mg capsule 70 mg PO DAILY #30 cap MDD 120mg 06/27/19 doxycycline hyclate 100 mg PO BID #19 cap 07/25/19 acyclovir 800 mg PO Q4H 7 Days #42 tab 07/26/19 prednisone 50 mg PO DAILY #7 tab 07/26/19 clindamycin HCl 450 mg PO TID 10 Days #90 cap 07/31/19 gabapentin 300 mg PO TID #30 cap 07/31/19 Allergies Allergy/AdvReac Type Severity Reaction Status Date / Time No Known Allergies Allergy Verified 07/26/19 11:49 General Stated Complaint: GenMedical SHAWN: 4 Review of Systems Review of Systems All systems reviewed & are unremarkable except as noted in HPI and below Constitutional Denies chills and Denies fever(s) Cardiovascular Denies chest pain and Denies dyspnea Respiratory Denies cough and Denies dyspnea Gastrointestinal Denies abdominal pain, Denies nausea and Denies vomiting PFSH Social History Smoking/Tobacco Use Status: Current every day Tobacco Type: e-cigarettes Quit status: not considering quitting Alcohol Intake: current Alcohol Intake frequency: a few times a week Details: couple beers or twisted teas on the weekends Drug use: Never Substance use type: does not use Adopted: Yes Household members: family Housing: house Pets and animals: No Sexually active: Yes Do you think of yourself as: straight/heterosexual Current gender identity: male Duration: > 90 minutes/day Frequency: daily Yeimi/Rastafari: No preference Special yeimi needs: No Seatbelt use: always Helmet use: Yes Do you feel safe at home: Yes Do you feel safe in your relationship?: Yes Exam Const General: no acute distress Orientation: alert HENMT Head: normal to inspection Ears: external ears normal General nose exam: external nose normal Mouth: moist mucous membranes Eyes General: appearance normal, both eyes and all related structures Neck Neck: normal visual inspection Resp Effort & Inspection: normal respiratory effort and able to speak in complete sentences Cardio Rate: regular rate Skin General skin exam: elasticity normal Neuro General: alert and oriented x3 Extrem General: normal to inspection Psych Mental Status: mental status grossly normal Course Vital Signs Temperature 36.6 C 07/31/19 22:13 Pulse 83 07/31/19 22:13 Respiratory Rate 18 07/31/19 22:13 Blood Pressure 111/81 07/31/19 22:13 Pulse Oximetry 98 07/31/19 22:13 Temperature 36.6 C 07/31/19 22:13 Pulse 83 07/31/19 22:13 Respiratory Rate 18 07/31/19 22:13 Respiratory Effort Non-Labored 07/31/19 22:22 Blood Pressure 111/81 07/31/19 22:13 Pulse Oximetry 98 07/31/19 22:13 Pain Level 7 07/31/19 22:13
[2019-07-31 22:43] VITALS: BP 111/81; PULSE 83; RESP 18; O2SAT 98
[2019-07-31] MEDS: Gabapentin 300 MG CAP PO (22:44)
== END 2019-07-31 22:40 | disposition home or self-care (01) ==
PROVIDERS: Emergency Provider Emergency Medicine; PCP Family Medicine
DX: B02.9 Zoster without complications (principal)
CPT/HCPCS: 99283

== ENCOUNTER 2019-09-24 22:27 | Emergency (ER) | payer MEDICAID, SELFPAY ==
[2019-09-24 22:30] VITALS: BP 137/65; PULSE 82; RESP 17; TEMP 37.1; O2SAT 98
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
[2019-09-24] MEDS: HYDROcodone 5/Acetaminophen 325 TAB PO (23:00)
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
[2019-09-25 00:31] VITALS: BP 112/66; PULSE 75; RESP 16; O2SAT 98
== END 2019-09-25 00:35 | disposition home or self-care (01) ==
PROVIDERS: Emergency Provider Student in an Organized Health Care Education/Training Program; PCP Family Medicine
DX: S00.83XA Contusion of other part of head, initial encounter (principal); S06.0X0A Concussion without loss of consciousness, initial encounter; W22.8XXA Striking against or struck by other objects, initial encounter
CPT/HCPCS: 99284; 70450; 72125; 99283; L0172

== ENCOUNTER 2019-12-28 22:11 | Emergency (ER) | payer MEDICAID, SELFPAY ==
[2019-12-28 22:25] VITALS: BP 127/71; PULSE 100; RESP 18; TEMP 36.5; O2SAT 98
--- NOTE | 2019-12-28 22:27 | W.ED.GENAD ---
Discharge Plan Disposition Patient Disposition: HOME Condition: Good Discharge Details Chief Complaint: Orthopedic Clinical Impression: Contusion of hand Primary Care Provider: Tom Hastings ED Provider: Kathy Rodriguez Home Meds and New Rx's Prescriptions: Continued Vyvanse 70 mg capsule 70 mg PO DAILY MDD 120 Qty: 30 RF: 0 Vyvanse 50 mg capsule 50 mg PO DAILY MDD 120mg Qty: 30 RF: 0 Discharge Instructions Instructions: Contusion in Adults (ED) Additional Instructions: Encourage rest, ice, elevation. Tylenol and/or ibuprofen as needed for discomfort. Please follow-up with primary care in 2 weeks if not improving. Please continue with WILY level discomfort as needed. Referrals: Tom Hastings [Primary Care Provider] - Discharge Data Discharge Date/Time-TO BE ENTERED AT DEPARTURE: 12/28/19 23:25 Medical Decision Making Patient is a pleasant 19 year old RHD male presenting toa with c/c of right hand pain. States that he fell on his outstretched hand when he slipped outside. Reports pain over the thenar eminence. Not strike his head, no loss of consciousness. Denies other injury the time of the incident. Does have a small superficial abrasion over the thenar eminence. Reports that tetanus is up-to-date. Patient reports previous fracture to the fifth metacarpal. No numbness or tingling. Exam otherwise normal.Full ROM, normal sensation, ligamentous exam intact, no pain over snuff box. FINDINGS: Bones/joints: No acute fracture. Joint spaces are maintained. Soft tissues: Normal. IMPRESSION: No acute findings. Discussed this findings with the patient. Encourage rest, ice, elevation. Tylenol and/or ibuprofen as needed for discomfort. Advised contusion. He was given return precautions. All his questions and concerns were addressed and he is in agreement this plan. HPI General Mode of arrival: ambulatory. Date/Time Provider Initiated Documentation: 12/28/19 22:26. Limitations to Documentation: no limitations. Information obtained by: patient and RN notes reviewed. History of Present Illness 19 year old M presents to the emergency department with the chief complaint of right hand pain after FOOSH, described as severe, with intensity rated at 9. Quality is described as sharp, and is localized to the right and upper extremity. Patient reports no radiation. Patient started experiencing this minute(s) (30) and it has been constant. Immobilization improves symptom(s), Movement worsens symptoms . Patient notes no other symptoms.. Patient did receive the following treatments prior to arrival, none Related Data Home Medications Medication Instructions Recorded Confirmed lisdexamfetamine 50 mg capsule 50 mg PO DAILY #30 cap MDD 120mg 12/21/19 12/28/19 lisdexamfetamine 70 mg capsule 70 mg PO DAILY #30 cap MDD 120 12/21/19 12/28/19 Previous Rx's Medication Instructions Recorded lisdexamfetamine 50 mg capsule 50 mg PO DAILY #30 cap MDD 120mg 12/21/19 lisdexamfetamine 70 mg capsule 70 mg PO DAILY #30 cap MDD 120 12/21/19 Allergies Allergy/AdvReac Type Severity Reaction Status Date / Time Penicillins Allergy Intermediate Hives Unverified 12/28/19 22:30 General SHAWN: 2 Review of Systems Constitutional Constitutional: Reports as per HPI, Denies chills, Denies fever(s), Denies headache(s) and Denies weakness ENT Ears, Nose, Mouth, and Throat: Denies headache(s) Cardiovascular Cardiovascular: Reports as per HPI Respiratory Respiratory: Reports as per HPI and Denies cough Musculoskeletal Musculoskeletal: Reports as per HPI and Denies tingling Integumentary/Breasts Skin/Breast: Reports as per HPI, Denies rash and Denies wounds Neurologic Neurologic: Reports as per HPI, Denies headache(s), Denies tingling, Denies paresthesias and Denies weakness [facility] Medical History ADHD (attention deficit hyperactivity disorder) Attention deficit hyperactivity disorder (ADHD), predominantly hyperactive type (Acute 04/14/17) Surgical History Circumcision (~10/05/18) Social History Smoking/Tobacco Use Status: Current every day Tobacco Type: e-cigarettes Quit status: not considering quitting Alcohol Intake: current Alcohol Intake frequency: a few times a week Details: couple beers or twisted teas on the weekends Drug use: Occasionally Substance use type: marijuana Adopted: Yes Household members: family Housing: house Pets and animals: No Sexually active: Yes Do you think of yourself as: straight/heterosexual Current gender identity: male Duration: > 90 minutes/day Frequency: daily Yeimi/Mormonism: No preference Special yeimi needs: No Seatbelt use: always Helmet use: Yes Do you feel safe at home: Yes Do you feel safe in your relationship?: Yes Exam Const General: cooperative, healthy appearing, comfortable, no acute distress, well developed and well groomed Nutritional Appearance: average body habitus and well nourished Orientation: alert and awake Resp Effort & Inspection: normal respiratory effort, able to speak in complete sentences and no respiratory distress Cardio Rate: regular rate Rhythm: regular rhythm Skin Trauma: abrasion (superficial abrasion right thenar emmanance) Neuro General: alert and awake Cognition: normal cognition Speech: speech normal Gait: normal gait Motor: muscle tone normal throughout Sensory Exam: no sensory deficits noted Extrem Right upper extremity: full ROM, normal capillary refill, no joint enlargement, elbow/forearm Details: normal to inspection, normal ROM and distal pulses intact; no tenderness, no swelling, no unusual warmth, no ecchymosis, no crepitus and no deformity, wrist Details: normal to inspection, normal ROM, normal vascular exam and radial pulse present; no tenderness (no pain over snuff box), no swelling, no unusual warmth, no abrasions, no lacerations, no ecchymosis, no crepitus and no deformity and hand Details: normal to inspection (abrasion as noted above), normal capillary refill, neuromotor exam normal, neurosensory exam normal, tendon exam normal, tenderness (thenar emmanance), vascular exam Details: radial pulse present and normal capillary refill, normal ROM of fingers, no swelling and abrasion; no swelling, no ecchymosis, no crepitus and no puncture wound; abnormal to inspection (abrasion as above, no bleeding, 5mm) Psych Appearance: grossly normal and well kempt Mental Status: mental status grossly normal Speech and Movement: speech and movement normal
--- NOTE | 2019-12-28 22:42 | DI.RAD_ITS ---
EXAM: XR HAND RT COMPLETE CLINICAL HISTORY: FOOSH TECHNIQUE: COMPARISON: No exams were available for comparison FINDINGS: Three views were obtained. No fracture is seen. IMPRESSION:
[2019-12-28] MEDS: Ibuprofen 600 MG TAB PO (22:48)
[2019-12-28] MEDS: Acetaminophen 500 MG TAB 1000 MG PO (22:48)
--- NOTE | 2019-12-28 23:17 | DI.VRAD_ITS ---
PROCEDURE INFORMATION: Exam: XR Right Hand Exam date and time: 12/28/2019 10:43 PM Age: 19 years old Clinical indication: Pain; Hand; Right TECHNIQUE: Imaging protocol: XR Right hand. Views: 3 or more views. COMPARISON: CR XR wrist RT complete 06/21/2019 3:18 PM FINDINGS: Bones/joints: No acute fracture. Joint spaces are maintained. Soft tissues: Normal. IMPRESSION: No acute findings. Dictated and Authenticated by: Miguel Ángel Chaves MD. Ordering:LYNNETTE Chavez MD
== END 2019-12-28 23:25 | disposition home or self-care (01) ==
PROVIDERS: Emergency Provider Physician Assistant; PCP Family Medicine
DX: S69.91XA Unspecified injury of right wrist, hand and finger(s), initial encounter (principal); S60.221A Contusion of right hand, initial encounter; W01.198A Fall on same level from slipping, tripping and stumbling with subsequent striking against other object, initial encounter
CPT/HCPCS: 99283; 73130

== ENCOUNTER 2021-02-07 11:11 | Outpatient (REF) | payer MEDICAID, SELFPAY ==
[2021-02-08 16:25] LABS: Chlamydia Result Negative (Negative); GC Result Negative (Negative)
== END 2021-02-07 11:12 | disposition home or self-care (01) ==
LOC: LBN 11:11
PROVIDERS: PCP Family Medicine; Visit Provider Nurse Practitioner Family
DX: R30.0 Dysuria (principal)
CPT/HCPCS: 87491; 87591

== ENCOUNTER 2021-05-29 17:11 | Emergency (ER) | payer MEDICAID, SELFPAY ==
[2021-05-29 17:14] VITALS: BP 137/78; PULSE 81; RESP 16; TEMP 36.5; O2SAT 97
--- NOTE | 2021-05-29 17:20 | ED.GENADUL_ITS ---
Discharge Plan Disposition Patient Disposition: HOME Condition: Good Discharge Details Clinical Impression: Acute shoulder pain Primary Care Provider: Isac Dugan ED Provider: Kathy Rodriguez Home Meds and New Rx's Prescriptions: Continued hydroxyzine HCl 25 mg tablet 25 - 50 mg PO QHS PRN (Reason: insomnia) Qty: 60 RF: 5 Vyvanse 50 mg capsule 50 mg PO DAILY MDD 50mg of this pill Qty: 30 RF: 0 Vyvanse 70 mg capsule 70 mg PO DAILY MDD 70mg of this pill Qty: 30 RF: 0 acetaminophen 500 mg Capsule 500 mg PO Q6H PRNRF: 0 Discharge Instructions Instructions: Shoulder Pain (ED) Additional Instructions: Your history and exam today is most consistent with an overuse injury. I do not see any evidence to suggest fracture, dislocation or tendon injury. Referral for physical therapy is attached, please call tomorrow to schedule follow-up appointment. Please continue with Tylenol and/or ibuprofen as needed for discomfort. Please dose as directed on the packaging. You may try topical options as well such as lidocaine patches. Heat or ice may also help with discomfort. Please avoid heavy lifting and overhead activities. If you develop new or worsening symptoms please seek care urgently once again. Otherwise, please follow-up with primary care in the next 1 to 2 weeks for reevaluation. Stand Alone Forms: Physical Therapy Referral, Work Release Referrals: Isac Dugan, [employer] [Primary Care Provider] - Medical Decision Making Patient is a 20-year-old [id number] male presenting today with chief complaint of right shoulder pain. 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 He reports that each axle weighs approximately 200 pounds. Denies sudden onset of pain. However, reports that this morning he noticed discomfort when he began trying to use the extremity, particular when lifting the arm outward. He denies any numbness or tingling. No trauma. Denies any previous surgeries or known injuries to the shoulder. On exam, patient appears nontoxic. He has 2+ distal pulses. He has full external and internal rotation. Forward elevation is limited actively but he does have full passive range of motion with discomfort elicited at the extreme of motion. He has discomfort elicited with Neer and Munoz but no weakness is appreciated. Do not appreciate any weakness of the rotator cuff on exam. No AC joint separation. No Serge deformity. Neurovascularly intact. We will give ibuprofen for discomfort. Plan to obtain x-ray although I have fairly low suspicion for bony abnormality. Primarily concern for inflammation and overuse injury. FINDINGS: Bones/joints: Normal. Soft tissues: Normal. IMPRESSION: No acute findings. Discussed these findings with the patient. Encourage rest, ice, elevation. Ty lenol and/or ibuprofen as needed for discomfort. Return precautions were discussed. Will refer to physical therapy. Patient given a lidocaine patch as well to help with discomfort. Patient is concerned about returning to work with this discomfort, work note was given. Advise close follow-up with primary care. All his questions and concerns were addressed and he is in agreement this plan. HPI General Mode of arrival: ambulatory . Date/Time Provider Initiated Documentation: 05/29/21 17:20 . Limitations to Documentation: no limitations . Information obtained by: patient and RN notes reviewed . History of Present Illness 20 year old M presents to the emergency department with the chief complaint of right shoulder pain, described as severe, with intensity rated at 10. Quality is described as aching, and is localized to the right and upper extremity. Patient extremity. Patient started experiencing this day(s) (1) and it has been constant. Immobilization improves symptom(s), Movement worsens symptoms . Patient notes no other symptoms.. Patient did receive the following treatments prior to arrival, none Related Data Home Medications Medication Instructions Recorded Confirmed hydroxyzine HCl 25 mg tablet 25 - 50 mg PO QHS PRN #60 tab 05/16/20 05/29/21 lisdexamfetamine 50 mg capsule 50 mg PO DAILY #30 cap MDD 50mg of 05/21/21 05/29/21 this pill lisdexamfetamine 70 mg capsule 70 mg PO DAILY #30 cap MDD 70mg of 05/21/21 05/29/21 this pill acetaminophen 500 mg PO Q6H PRN 05/29/21 05/29/21 Previous Rx's Medication Instructions Recorded hydroxyzine HCl 25 mg tablet 25 - 50 mg PO QHS PRN #60 tab 05/16/20 lisdexamfetamine 50 mg capsule 50 mg PO DAILY #30 cap MDD 50mg of 05/21/21 this pill lisdexamfetamine 70 mg capsule 70 mg PO DAILY #30 cap MDD 70mg of 06/29/21 this pill Allergies Allergy/AdvReac Type Severity Reaction Status Date / Time Penicillins Allergy Intermediate Hives Verified 05/21/21 14:21 General Stated Complaint: Orthopedic SHAWN: 4 Review of Systems Constitutional Constitutional: Reports as per HPI, Denies chills, Denies fever(s), Denies headache(s) and Denies weakness ENT Ears, Nose, Mouth, and Throat: Denies headache(s) Cardiovascular Cardiovascular: Reports as per HPI Respiratory Respiratory: Reports as per HPI and Denies cough Musculoskeletal Musculoskeletal: Reports as per HPI and Denies tingling Integumentary/Breasts Skin/Breast: Reports as per HPI, Denies rash and Denies wounds Neurologic Neurologic: Reports as per HPI, Denies headache(s), Denies tingling, Denies paresthesias and Denies weakness FOR[facility] Medical History (Updated 05/29/21 @ 18:12 by DORINDA Dickerson) ADHD (attention deficit hyperactivity disorder) Attention deficit hyperactivity disorder (ADHD), predominantly hyperactive type (04/14/17) Surgical History Circumcision (~10/05/18) Family History Mother No problems noted. Father No problems noted. Brother No problems noted. Brother No problems noted. Brother No problems noted. Brother No problems noted. Maternal Grandfather Prostate cancer Paternal Grandfather , AGE 63 Cancer LUNG,LIVER,HEART,BRAIN Maternal Grandmother Alcohol abuse Breast cancer Paternal Grandmother No problems noted. Social History Smoking/Tobacco Use Status: Current every day Tobacco Type: e-cigarettes Quit status: not considering quitting Smoking risk assessment performed?: Yes Alcohol Intake: current Alcohol Intake frequency: a few times a week Details: couple beers or twisted teas on the weekends Drug use: Occasionally Substance use type: marijuana Adopted: Yes Household members: family Housing: house Pets and animals: No Sexually active: Yes Do you think of yourself as: straight/heterosexual Current gender identity: male Duration: > 90 minutes/day Frequency: daily Yeimi/Sabianist: No preference Special yeimi needs: No Seatbelt use: always Helmet use: Yes Do you feel safe at home: Yes Do you feel safe in your relationship?: Yes Exam Const General: cooperative, healthy appearing, comfortable, no acute distress, well developed and well groomed Nutritional Appearance: average body habitus and well nourished Orientation: alert and awake Resp Effort & Inspection: normal respiratory effort, able to speak in complete sent ences and no respiratory distress Cardio Rate: regular rate Rhythm: regular rhythm Skin General skin exam: no rashes or lesions noted Lesions: no lesions Rashes: no rashes Trauma: no lacerations or abrasions Neuro General: patient alert and patient awake Cognition: normal cognition Speech: speech normal Gait: normal gait Motor: muscle tone normal throughout Sensory Exam: no sensory deficits noted Extrem Right upper extremity: normal to inspection, normal capillary refill, no joint enlargement and shoulder/upper arm Shoulder/upper arm images: 1. Patient reports diffuse discomfort. Has pain with palpation anterior, lateral and posteriorly. No pain at the AC joint. 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 Sensation is intact, 2+ distal pulses and intact capillary refill. Patient is able to actively forward elevate to approximately no 140 degrees. Actively is able to reach full extension although has discomfort at that time. He has full external and internal rotation although he does have discomfort with full internal rotation. No weakness noted with Neer and Munoz. Negative speeds test. No Serge deformity. Psych Appearance: grossly normal and well kempt Mental Status: mental status grossly normal Speech and Movement: speech and movement normal Course Vital Signs Vital signs: Vital Signs Temperature 36.5 C 05/29/21 17:14 Pulse 81 05/29/21 17:14 Respiratory Rate 16 05/29/21 17:14 Blood Pressure 137/78 05/29/21 17:14 Pulse Oximetry 97 05/29/21 17:14 Temperature 36.5 C 05/29/21 17:14 Temperature Source Skin 05/29/21 17:14 Pulse 81 05/29/21 17:14 Respiratory Rate 16 05/29/21 17:14 Respiratory Effort Non-Labored 05/29/21 17:17 Blood Pressure 137/78 05/29/21 17:14 Blood Pressure Position Sitting 05/29/21 17:14 Pulse Oximetry 97 05/29/21 17:14 Oxygen Delivery Method Room Air 05/29/21 17:14 Oxygen Flow Rate 0 05/29/21 17:14 Pain Level 10 05/29/21 17:14
[2021-05-29] MEDS: Ibuprofen 600 MG TAB PO (17:28)
--- NOTE | 2021-05-29 18:04 | DI.RAD_ITS ---
Exam(s) XR SHOULDER RT COMPLETE 2+V EXAM: XR SHOULDER RT COMPLETE 2+V CLINICAL HISTORY: overuse injury yesterday. TECHNIQUE: 2D digital imaging was performed. COMPARISON: No exams were available for comparison FINDINGS: BONES: No acute fracture is present. No bony destructive lesion is seen. JOINTS: No dislocation present. SOFT TISSUE: Normal. IMPRESSION: Unremarkable radiographs of the right shoulder. DATA REPOSITORY: RADIATION DOSE DELIVERED:
--- NOTE | 2021-05-29 18:09 | DI.VRAD_ITS ---
PROCEDURE INFORMATION: Exam: XR Right Shoulder Exam date and time: 05/29/2021 5:33 PM Age: 20 years old Clinical indication: Injury or trauma; Other: Overuse; Blunt trauma (contusions or hematomas); Shoulder; Right TECHNIQUE: Imaging protocol: XR Right shoulder. Views: 2 or more views. COMPARISON: No relevant prior studies available. FINDINGS: Bones/joints: Normal. Soft tissues: Normal. IMPRESSION: No acute findings. Dictated and Authenticated by: Karl Martinez MD. Ordering:LYNNETTE Chavez MD
[2021-05-29] MEDS: Lidocaine 5% Patch 1 PATCH TP (18:17)
== END 2021-05-29 18:48 | disposition home or self-care (01) ==
PROVIDERS: Emergency Provider Physician Assistant; PCP Nurse Practitioner Family
DX: M25.511 Pain in right shoulder (principal); X50.0XXA Overexertion from strenuous movement or load, initial encounter; Y99.0 Civilian activity done for income or pay
CPT/HCPCS: 99283; 73030; 99282

== ENCOUNTER 2021-07-12 20:20 | Outpatient (REF) | payer MEDICAID, SELFPAY ==
[2021-07-12 20:42] LABS: Abs Immature Grans 0.03 10^3/uL (0.0-0.06); Absolute Basophil Count 0.07 10^3/uL (0.0-0.2); Absolute Eosinophil Count 0.38 10^3/uL (0.0-0.7); Absolute Lymphocyte Count 2.02 10^3/uL (1.2-3.4); Absolute Monocyte Count 0.66 10^3/uL (0.1-0.8); Absolute Neutrophil Count 6.72 10^3/uL (1.2-6.7); Basophils % 0.7; Eosinophils % 3.8; HCT 50.4 % (40.0-50.0); HGB 16.8 g/dL (13.5-17.5); Immature Grans % 0.3; Lymphocytes % 20.4; MCH 27.3 pg (27.0-33.0); MCHC 33.3 % (32.0-36.0); MPV 10.5 fL (8.0-11.0); Monocytes % 6.7; Neutrophils % 68.1; Nucleated RBC 0 %; Platelet Count 295 10^3/uL (130-400); RBC 6.15 10^6/uL (4.36-5.78); RDW 12.4 % (11.8-14.1); WBC 9.88 10^3/uL (4.4-10.8)
[2021-07-12 20:52] LABS: ALT 29 U/L (16-63); AST 21 U/L (15-37); Albumin 5.4 g/dL (3.4-5.0); Alkaline Phosphatase 82 U/L (46-116); Anion Gap 13.2 mmol/L (3-11); BUN 15 mg/dL (7-18); Bilirubin, Total 1.2 mg/dL (0.2-1.0); CO2 27.8 mmol/L (21.0-32.0); Calcium 10.3 mg/dL (8.5-10.1); Chloride 101 mmol/L (98-107); Glucose 92 mg/dL (74-106); Potassium 4.6 mmol/L (3.5-5.1); Sodium 142 mmol/L (136-145); Total Protein 8.9 g/dL (6.4-8.2)
[2021-07-14 12:51] LABS: COVID-19 RT-PCR UVMMC Result Negative (Negative)
== END 2021-07-12 20:21 | disposition home or self-care (01) ==
LOC: LBN 20:20
PROVIDERS: PCP Nurse Practitioner Family; Visit Provider Nurse Practitioner Family
DX: R10.9 Unspecified abdominal pain (principal); R19.7 Diarrhea, unspecified; Z20.822 Contact with and (suspected) exposure to COVID-19
CPT/HCPCS: 80053; U0003; 85025

== ENCOUNTER 2021-07-15 14:56 | Outpatient (REF) | payer MEDICAID, SELFPAY ==
[2021-07-15 21:57] LABS: Campylobacter PCR Negative (Negative); Salmonella PCR Negative (Negative); Shiga Toxin PCR Negative (Negative); Shigella/Enteroinvasive Ecoli Negative (Negative)
== END 2021-07-15 14:57 | disposition home or self-care (01) ==
LOC: LBN 14:56
PROVIDERS: PCP Nurse Practitioner Family; Visit Provider Nurse Practitioner Family
DX: R19.7 Diarrhea, unspecified (principal)
CPT/HCPCS: 87505; 87177

== ENCOUNTER 2021-07-18 02:16 | Outpatient (CLI) | payer MEDICAID, SELFPAY ==
--- NOTE | 2021-07-18 08:45 | DI.CT_ITS ---
Exam(s) CT ABDOMEN PELVIS W EXAM: CT ABDOMEN PELVIS W CLINICAL HISTORY: abd pain, R10.9. TECHNIQUE: Imaging Protocol: Axial computed tomography images with coronal and sagittal reformatted images were created and reviewed CONTRAST MATERIAL: Intravenous: Omnipaque 100cc Oral: None COMPARISON: No exams were available for comparison FINDINGS: VISUALIZED LUNG BASES: No nodules nor pleural effusions evident. ABDOMEN: There is no ascites. LIVER: There are no focal hepatic lesions evident. There steatosis is noted in the region of the int erlobar fissure. GALLBLADDER/BILIARY: No obvious gallbladder pathology. CBD is not dilated. PANCREAS: No evidence of pancreatic mass nor dilatation of the pancreatic duct. SPLEEN: Spleen size is upper normal. Splenic and portal veins are patent. ADRENALS: There are no significant adrenal masses. KIDNEYS:No cysts evident. No solid renal masses. No calculi nor hydronephrosis.. ABDOMINAL AORTA: Abdominal aorta is not enlarged. LYMPH NODES:There is no retroperitineal nor paraaortic adenopathy. ABDOMINAL WALL: No evidence of significant anterior abdominal wall hernia. PELVIS: GI: No evidence of appendicitis.There is no significant sigmoid diverticular disease.However, there i s very mild haziness around part of the sigmoid, possibly significant. No diverticuli at this level. No obvious colitis pattern. LYMPH NODES: There is no intrapelvic nor inguinal adenopathy. REPRODUCTIVE: Prostate gland is not enlarged URINARY BLADDER: No calculi nor obvious masses evident OSSEOUS: No significant osseous lesions. IMPRESSION: 1. No evidence of appendicitis nor diverticulitis. 2. Very mild haziness around part of the sigmoid, possibly significant with respect to the inflammato ry change. However, there does not appear to be prominent wall thickening at this level. There is n o obvious colitis pattern. 3. Focal fatty change in liver around the interlobar fissure noted. 4. No evidence of significant subcutaneous finding subjacent to the skin marker on the lateral abdomi nal wall. RADIATION DOSE DELIVERED: 1,096.06mGy.cm Total DLP DATA REPOSITORY: All CT scans at this facility are submitted to the National Radiology Data Registry (NRDR) Dose Index Registry (DIR) with the [employer] (ACR). RADIATION OPTIMIZATION: All CT scans at this facility use at least one of these dose optimization te chniques: automated exposure control; mA and/or kV adjustment per patient size (includes targeted exa ms where dose is matched to clinical indication); or iterative reconstruction.
[2021-07-18] MEDS: Omnipaque 350 MG/ML 50 ML BTL IJ (12:14)
[2021-07-18] MEDS: Breeza Beverage 473 ML BTL PO (12:15)
[2021-07-18] MEDS: Omnipaque 350 MG/ML 100 ML BTL IV (14:09)
== END 2021-07-18 02:36 ==
PROVIDERS: PCP Nurse Practitioner Family; Visit Provider Nurse Practitioner Family
DX: R10.9 Unspecified abdominal pain (principal); K76.0 Fatty (change of) liver, not elsewhere classified; R93.3 Abnormal findings on diagnostic imaging of other parts of digestive tract
CPT/HCPCS: 74177; J3490; Q9967

== ENCOUNTER 2022-01-01 12:14 | Outpatient (REF) | payer MEDICAID, SELFPAY ==
[2022-01-03 10:53] LABS: COVID-19 RT-PCR UVMMC Result Negative (Negative)
== END 2022-01-01 12:15 | disposition home or self-care (01) ==
LOC: LBN 12:14
PROVIDERS: PCP Nurse Practitioner Family; Visit Provider Nurse Practitioner Family
DX: Z20.822 Contact with and (suspected) exposure to COVID-19 (principal)
CPT/HCPCS: U0003

== ENCOUNTER 2022-01-23 15:52 | Emergency (ER) | payer MEDICAID, SELFPAY ==
--- NOTE | 2022-01-23 15:45 | DI.RAD_ITS ---
Exam(s) XR SHOULDER RT COMPLETE 2+V EXAM: XR SHOULDER RT COMPLETE 2+V CLINICAL HISTORY: Skiing accident. TECHNIQUE: 2D digital imaging was performed. COMPARISON: CR,XR XR SHOULDER RT COMPLETE 2+V from 05/29/2021 FINDINGS: BONES: No acute fracture is present. No bony destructive lesion is seen. JOINTS: No dislocation present. SOFT TISSUE: Normal. IMPRESSION: Unremarkable radiographs of the right shoulder. DATA REPOSITORY: RADIATION DOSE DELIVERED:
[2022-01-23 15:54] VITALS: BP 122/66; PULSE 65; RESP 18; TEMP 36.5
--- NOTE | 2022-01-23 16:03 | W.ED.GENAD ---
Discharge Plan Disposition Patient Disposition: HOME Condition: Stable Discharge Details Clinical Impression: Sprain of right shoulder, Injury due to skiing accident Primary Care Provider: Isac Dugan ED Provider: Rossy oRper Home Meds and New Rx's Prescriptions: No Action Vyvanse 50 mg capsule 50 mg PO DAILY MDD 50mg of this pill Qty: 30 0RF Rx Instructions: take 50mg early afternoon (take other pill of 70mg in am) Vyvanse 70 mg capsule 70 mg PO DAILY MDD 70mg of this pill Qty: 30 0RF Rx Instructions: take one capsule in am (take the other pill of 50mg early afternoon) acetaminophen 500 mg Capsule 1,000 mg PO Q6H PRN0RF Discharge Instructions Instructions: Shoulder Sprain (ED) Additional Instructions: At this time the x-rays show no evidence for broken bone or dislocation. I do suspect that he sprained her shoulder. Alternate ice and heat. Please take Tylenol or Ibuprofen with food every 4-6 hours as needed for pain and swelling. Wear sling as needed for comfort when out and about. Please take it off when at rest. If continued pain please follow-up with your primary care provider and/or Ortho if needed. Follow up with primary care provider in 3-5 days if needed Return to ED sooner if any worsening or concerns. Increase oral fluids. Stand Alone Forms: Work Release Referrals: Isac Dugan NP [Primary Care Provider] - Shine Martel MD [ [facility] STAFF PHYSICIAN] - Return if symptoms worsen Medical Decision Making 20-year-old male presents after landing on his right shoulder while skiing. Patient reports swelling and tenderness to his anterior right shoulder. Denies any neck pain, head pain, loss of consciousness no chest or abdominal pain no shortness of breath. No signs of any other trauma. There is a little bit of pinpoint swelling and tenderness over the AC joint area. Distal CMS intact. X-ray right shoulder ordered and 800 mg ibuprofen. Differential diagnosis includes but not limited to dislocation, fracture, sprain, AC joint separation, clavicle fracture or ligament tear. EXAM: XR SHOULDER RT COMPLETE 2+V CLINICAL HISTORY: Skiing accident. TECHNIQUE: 2D digital imaging was performed. COMPARISON: CR,XR XR SHOULDER RT COMPLETE 2+V from 05/29/2021 FINDINGS: BONES: No acute fracture is present. No bony destructive lesion is seen. JOINTS: No dislocation present. SOFT TISSUE: Normal. IMPRESSION: Unremarkable radiographs of the right shoulder. Will offer patient a sling, no evidence of fracture or dislocation. Discussed x-ray with patient, given a sling discussed home care and follow-up with Ortho if continued pain who verbalized understanding. Patient given a work note and discussed light duty not to lift anything heavy for a week for reach over his head. Patient verbalized understanding. This record was completed using the [employer] dictation system please disregard any oddities of phrase or misspellings. HPI General Mode of arrival: ambulatory. Date/Time Provider Initiated Documentation: 01/23/22 15:58. Limitations to Documentation: no limitations. Information obtained by: patient, RN notes reviewed and old records reviewed. HPI Narrative: 21-year-old male presents to the ER with chief complaint of right shoulder pain status post a skiing injury approximately 2 hours ago. Patient reports he was downhill skiing when his skis got caught and he fell landing on his right shoulder. He denies any loss of consciousness, no head pain no neck pain no back pain or any other associated symptoms. He denies any chest pain or abdominal pain. No obvious deformity noted he does have some anterior proximal swelling and tenderness with palpation. Distal CMS is intact. He denies any elbow pain or wrist pain. Did not take any medications prior to arrival. He is alert and oriented x4. Past medical history includes ADHD. Related Data Home Medications Medication Instructions Recorded Confirmed acetaminophen 500 mg capsule 1,000 mg PO Q6H PRN 05/29/21 01/23/22 lisdexamfetamine 50 mg capsule 50 mg PO DAILY #30 cap MDD 50mg of 01/06/22 01/23/22 (Vyvanse) this pill lisdexamfetamine 70 mg capsule 70 mg PO DAILY #30 cap MDD 70mg of 01/06/22 01/23/22 (Vyvanse) this pill Previous Rx's Medication Instructions Recorded lisdexamfetamine 50 mg capsule 50 mg PO DAILY #30 cap MDD 50mg of 01/06/22 (Vyvanse) this pill lisdexamfetamine 70 mg capsule 70 mg PO DAILY #30 cap MDD 70mg of 01/06/22 (Vyvanse) this pill Allergies Allergy/AdvReac Type Severity Reaction Status Date / Time Penicillins Allergy Intermediate Hives Verified 01/23/22 16:21 General Stated Complaint: Orthopedic SHAWN: 3 Review of Systems All systems reviewed & are unremarkable except as noted in HPI and below Musculoskeletal Musculoskeletal: Reports arthralgias (Right shoulder) COUNTS INCLUDE 234 BEDS AT THE [facility] All Active Problems (Updated 01/23/22 @ 17:00 by Rossy Roper) Sprain of right shoulder (Acute) Injury due to skiing accident (Acute) Acute shoulder pain (Acute) Lipoma (Acute) Blurred vision (Acute) Family history of diabetes mellitus in father (Acute) Family history of hyperlipidemia (Acute) Contusion of hand (Acute) Concussion (Acute) Right wrist pain (Acute) Pain, dental (Acute) use med as directed see dentist when you can Attention deficit hyperactivity disorder (ADHD), predominantly hyperactive type (Acute 04/14/17) Medical History (Updated 01/23/22 @ 17:00 by Rossy Roper) ADHD (attention deficit hyperactivity disorder) Surgical History Circumcision (~10/05/18) Family History Mother No problems noted. Father No problems noted. Brother No problems noted. Brother No problems noted. Brother No problems noted. Brother No problems noted. Maternal Grandfather Prostate cancer Paternal Grandfather , AGE 63 Cancer LUNG,LIVER,HEART,BRAIN Maternal Grandmother Alcohol abuse Breast cancer Paternal Grandmother No problems noted. Social History Smoking/Tobacco Use Status: Current every day Tobacco Type: e-cigarettes Quit status: not considering quitting Smoking risk assessment performed?: Yes Alcohol Intake: current Alcohol Intake frequency: a few times a week Details: couple beers or twisted teas on the weekends Drug use: Occasionally Substance use type: marijuana Adopted: Yes Household members: family Housing: house Pets and animals: No Sexually active: Yes Do you think of yourself as: straight/heterosexual Current gender identity: male Duration: > 90 minutes/day Frequency: daily Yeimi/Shinto: No preference Special yeimi needs: No Seatbelt use: always Helmet use: Yes Do you feel safe at home: Yes Do you feel safe in your relationship?: Yes Exam Narrative Exam Narrative: General: Well Developed, Awake and Alert, conversant. Skin: Warm and Dry HEENT: Head: No palpable deformities, Normocephalic Eyes: Pupils PERRLA, EOM's intact. No periorbital eccymosis or step off Ears: Canal patent. Tympanic membranes are clear . No hsieh's sign, no hemptympanum. Nose/Face: Atraumatic. Facial bones nontender to palpation and stable with manipulation. Mouth/Throat: No intraoral trauma. Teeth and mandible are intact. Neck: No midline tenderness, no step off, no deformity to palpation of C-spine. Trachea midline. Chest: No surface trauma. Nontender without crepitus or deformity. Lungs clear to ausculatation bilaterally. Heart: RRR, no rubs, murmurs or gallop. Abdomen: No abrasions, ecchymosis, or surface trauma. Nondistended. Nontender to palpation no guarding, rebound, or rigidity. Pelvis: Nontender to palpation and stable to compression. Femoral pulses strong and equal Extremities: no surface trauma. Sensation intact. Peripheral pulses intact and equal. Swelling noted to the anterior proximal area of the shoulder over the AC joint. No obvious deformity or evidence of dislocation. Distal CMS intact, elbow full range of motion wrist full range of motion. No other injuries noted. Neuro: ANO x4, GCS 15, cranial nerves II through XII intact. Motor and sensory exam nonfocal. Reflexes are symmetric. Course Vital Signs Vital signs: Vital Signs Temperature 36.5 C 01/23/22 15:54 Pulse 65 01/23/22 15:54 Respiratory Rate 18 01/23/22 15:54 Blood Pressure 122/66 01/23/22 15:54 Temperature 36.5 C 01/23/22 15:54 Temperature Source Temporal Artery Scan 01/23/22 15:54 Pulse 65 01/23/22 15:54 Respiratory Rate 18 01/23/22 15:54 Respiratory Effort 01/23/22 16:01 Blood Pressure 122/66 01/23/22 15:54 Blood Pressure Position Sitting 01/23/22 15:54 Oxygen Delivery Method Room Air 01/23/22 15:54 Oxygen Flow Rate 0 01/23/22 15:54 Pain Level 7 01/23/22 15:54 PAWSS Have you Been Recently Intoxicated or Drunk Within the Last 30 days?: No Have you Ever Experienced Previous Episodes of Alcohol Withdrawal?: No Have you ever Experienced Withdrawal Seizures?: No Have you ever Experienced Delirium Tremens(DT)s?: No Have you ever undergone Alcohol Rehabilitation Treatment (i.e, inpt ot outpatient treatment programs)?: No Have you ever Experienced Blackouts?: No Have you ever Combined Alcohol with other Downers within the last 90 days?: No Have you ever Combined Alcohol with any other Substance of Abuse during the last 90 days?: No Positive Blood Alcohol level on Presentation? [PCS.BAL]: No Evidence of Increased Autonomic Activity (i.e. HR>120, tremor, sweating, agitation, nausea)?: No Result: 0
[2022-01-23] MEDS: Ibuprofen 800 MG TAB PO (16:14)
== END 2022-01-23 17:13 | disposition home or self-care (01) ==
PROVIDERS: Emergency Provider Registered Nurse Emergency; PCP Nurse Practitioner Family
DX: S43.491A Other sprain of right shoulder joint, initial encounter (principal); V00.321A Fall from snow-skis, initial encounter
CPT/HCPCS: 99283; 73030

== ENCOUNTER 2022-12-05 12:44 | Outpatient (CLI) | payer MEDICAID, SELFPAY ==
--- NOTE | 2022-12-05 12:15 | DI.RAD_ITS ---
Exam(s) XR KNEE LT 3V AP,LAT,KAITLYNN EXAM: XR KNEE LT 3V AP,LAT,KAITLYNN CLINICAL HISTORY: Fall with injury, [id number]. TECHNIQUE: 2D digital imaging was performed of the left knee. Three images were obtained. AP, late ral and PA tunnel views were obtained. COMPARISON: No exams were available for comparison FINDINGS: BONES: No acute fracture is present. No bony destructive lesion is seen. JOINTS: The knee is normally aligned. No joint effusion is seen. SOFT TISSUE: Normal. IMPRESSION: Normal radiographs of the left knee. DATA REPOSITORY: RADIATION DOSE DELIVERED:
== END 2022-12-05 13:04 ==
LOC: DI 12:45
PROVIDERS: PCP Nurse Practitioner Family; Visit Provider Nurse Practitioner Family
DX: S89.92XA Unspecified injury of left lower leg, initial encounter (principal); X58.XXXA Exposure to other specified factors, initial encounter
CPT/HCPCS: 73562

== ENCOUNTER → 2024-06-28 01:03 | Outpatient (CLI) | payer MEDICAID, SELFPAY ==
--- NOTE | 2024-06-28 07:15 | DI.RAD_ITS ---
Exam(s) XR SHOULDER LT COMPLETE 2+V EXAM: XR SHOULDER LT COMPLETE 2+V CLINICAL HISTORY: Worsening pain/popping,M25.512. TECHNIQUE: 2D digital imaging was performed. COMPARISON: CR,XR XR SHOULDER RT COMPLETE 2+V from 05/29/2021 CR XR SHOULDER RT COMPLETE 2+V from 01/23/2022 FINDINGS: No evidence of fracture nor dislocation nor abnormal soft tissue calcifications. Subacromial space a ppears unremarkable. A chromium and clavicle unremarkable as is the AC joint. Coracoid process unre markable. Glenohumeral joint appears unremarkable. Bone density normal. No osseous lesions. IMPRESSION: No significant osseous findings in the left shoulder. DATA REPOSITORY: RADIATION DOSE DELIVERED:
== END ==
PROVIDERS: PCP Nurse Practitioner Family; Visit Provider Nurse Practitioner Family
DX: M25.512 Pain in left shoulder (principal)
CPT/HCPCS: 73030

== ENCOUNTER 2024-07-12 01:35 | Outpatient (CLI) | payer MEDICAID, SELFPAY ==
--- NOTE | 2024-07-12 07:30 | DI.US_ITS ---
Exam(s) US HERNIA EXAM: US HERNIA CLINICAL HISTORY: umbilical pain,R10.33,DRAINAGE,? HERNIA. TECHNIQUE: Ultrasound was performed using standard protocol. COMPARISON: CT CT ABDOMEN PELVIS W from 07/18/2021 FINDINGS: Sonographic assessment utilizing grayscale and color Doppler imaging was performed and targeted to th e area of clinical concern. No evidence of hernia, mass or fluid collection. IMPRESSION: No abnormality is demonstrated in the periumbilical region. DATA REPOSITORY:
== END 2024-07-12 01:55 ==
LOC: DI 01:35
PROVIDERS: PCP Nurse Practitioner Family; Visit Provider Physician Assistant
DX: R10.33 Periumbilical pain (principal)
CPT/HCPCS: 76857

== ENCOUNTER 2024-07-20 13:36 | Emergency (ER) | payer MEDICAID, SELFPAY ==
[2024-07-20 13:39] VITALS: BP 136/83; PULSE 83; RESP 16; TEMP 36.3; O2SAT 98
--- NOTE | 2024-07-20 13:58 | W.ED.GENAD ---
Discharge Plan Disposition Patient Disposition: Home Condition: Stable Discharge Details Clinical Impression: Right ankle sprain Primary Care Provider: Isac Dugan ED Provider: Derrell Betancur Home Meds and New Rx's Prescriptions: Continued naproxen 500 mg tablet 500 mg PO BID PRN (Reason: pain) Qty: 30 0RF hydroxyzine HCl 25 mg tablet 25 - 50 mg PO QHS PRN (Reason: insomnia) Qty: 60 3RF polyethylene glycol 3350 [Miralax] 17 gram/dose powder 17 g PO DAILY Qty: 119 2RF trazodone 50 mg tablet 50 mg PO QHS PRN (Reason: sleep) Qty: 60 0RF albuterol sulfate 90 mcg/actuation HFA aerosol inhaler 2 puff inhalation Q6H PRN (Reason: shortness of breath or wheezing) Qty: 6.7 2RF loratadine [Claritin] 10 mg tablet 10 mg PO DAILY Qty: 90 3RF lisdexamfetamine 30 mg capsule 30 mg PO DAILY MDD 30mg Qty: 28 0RF lisdexamfetamine 40 mg capsule 40 mg PO DAILY MDD 40mg Qty: 28 0RF lisdexamfetamine [Vyvanse] 50 mg capsule 50 mg PO DAILY MDD 50mg of this pill Qty: 28 0RF Rx Instructions: take 50mg early afternoon (take other pill of 70mg in am) acetaminophen 500 mg Capsule 1,000 mg PO Q6H PRN Discharge Instructions Additional Instructions: Your x-ray did not show any concerning findings Follow-up with your primary care provider if not improving in a week If you feel more ill or have severe worsening pain return to the emergency department for reevaluation You can take 1000 mg of acetaminophen and 600 mg of ibuprofen every 6 hours as needed HPI General Mode of arrival: ambulatory. Date/Time Provider Initiated Documentation: 07/20/24 13:50. Limitations to Documentation: no limitations. Information obtained by: patient. History of Present Illness 23 year old M presents to the emergency department with the chief complaint of right ankle injury, described as moderate, Quality is described as aching, Patient started experiencing this hour(s) (1) and it has been constant. No relieving factors improve symptom(s), No exacerbating factors reported . Patient notes no other symptoms.. Patient did receive the following treatments prior to arrival, none Related Data Home Medications ?Medication ?Instructions ?Recorded ?Confirmed acetaminophen 500 mg capsule 1,000 mg PO Q6H PRN 05/29/21 07/20/24 naproxen 500 mg tablet 500 mg PO BID PRN pain #30 tabs 01/29/22 07/20/24 hydroxyzine HCl 25 mg tablet 25 - 50 mg (1 - 2 x 25 mg) PO QHS 02/05/22 07/20/24 PRN insomnia #60 tabs polyethylene glycol 3350 17 17 g PO DAILY #119 grams 03/19/22 07/20/24 gram/dose oral powder (Miralax) trazodone 50 mg tablet 50 mg PO QHS PRN sleep #60 tabs 12/04/23 07/20/24 albuterol sulfate 90 mcg/actuation 2 puff inhalation Q6H PRN 12/28/23 07/20/24 aerosol inhaler shortness of breath or wheezing #6.7 grams loratadine 10 mg tablet (Claritin) 10 mg PO DAILY #90 tabs 05/18/24 07/20/24 lisdexamfetamine 30 mg capsule 30 mg PO DAILY #28 caps 07/13/24 07/20/24 lisdexamfetamine 40 mg capsule 40 mg PO DAILY #28 caps 07/13/24 07/20/24 lisdexamfetamine 50 mg capsule 50 mg PO DAILY #28 caps 07/13/24 07/20/24 (Vyvanse) Previous Rx's ?Medication ?Instructions ?Recorded naproxen 500 mg tablet 500 mg PO BID PRN pain #30 tabs 01/29/22 hydroxyzine HCl 25 mg tablet 25 - 50 mg (1 - 2 x 25 mg) PO QHS 02/05/22 PRN insomnia #60 tabs polyethylene glycol 3350 17 17 g PO DAILY #119 grams 03/19/22 gram/dose oral powder (Miralax) trazodone 50 mg tablet 50 mg PO QHS PRN sleep #60 tabs 12/04/23 albuterol sulfate 90 mcg/actuation 2 puff inhalation Q6H PRN 12/28/23 aerosol inhaler shortness of breath or wheezing #6.7 grams loratadine 10 mg tablet (Claritin) 10 mg PO DAILY #90 tabs 05/18/24 lisdexamfetamine 30 mg capsule 30 mg PO DAILY #28 caps 07/13/24 lisdexamfetamine 40 mg capsule 40 mg PO DAILY #28 caps 07/13/24 lisdexamfetamine 50 mg capsule 50 mg PO DAILY #28 caps 07/13/24 (Vyvanse) Allergies Allergy/AdvReac Type Severity Reaction Status Date / Time Penicillins Allergy Intermediate Hives Verified 07/20/24 13:41 General Stated Complaint: Orthopedic SHAWN: 4 Review of Systems All systems reviewed & are unremarkable except as noted in HPI and below Constitutional Constitutional: Denies chills, Denies fever(s) and Denies weakness Cardiovascular Cardiovascular: Denies chest pain and Denies dyspnea Respiratory Respiratory: Denies cough and Denies dyspnea Gastrointestinal Gastrointestinal: Denies abdominal pain, Denies nausea and Denies vomiting Musculoskeletal Musculoskeletal: Denies joint swelling Neurologic Neurologic: Denies weakness Exam Const General: no acute distress Orientation: alert HENMT Head: normal to inspection Ears: external ears normal General nose exam: external nose normal Mouth: moist mucous membranes Eyes General: appearance normal, both eyes and all related structures Neck Neck: normal visual inspection Resp Effort & Inspection: normal respiratory effort and able to speak in complete sentences Cardio Rate: regular rate Skin General skin exam: no rashes or lesions noted Neuro General: patient alert and patient oriented x3 Extrem General: capillary refill normal Psych Mental Status: mental status grossly normal Course Vital Signs Vital signs: Vital Signs Temperature 36.3 C L 07/20/24 13:39 Pulse 83 07/20/24 13:39 Respiratory Rate 16 07/20/24 13:39 Blood Pressure 136/83 07/20/24 13:39 Pulse Oximetry 98 07/20/24 13:39 Temperature 36.3 C L 07/20/24 13:39 Temperature Source Temporal Artery Scan 07/20/24 13:39 Pulse 83 07/20/24 13:39 Respiratory Rate 16 07/20/24 13:39 Respiratory Effort Normal 07/20/24 13:43 Blood Pressure 136/83 07/20/24 13:39 Blood Pressure Position Sitting 07/20/24 13:39 Pulse Oximetry 98 07/20/24 13:39 Oxygen Delivery Method Room Air 07/20/24 13:39 Oxygen Flow Rate 0 07/20/24 13:39 Pain Level 7 07/20/24 13:39 Medical Decision Making 23-year-old male comes in with a right ankle injury. He says he was at his house outside when he stepped back into a hole causing him to fall backwards in your apartment ankle. He denies hitting his head or loss of consciousness. He localizes the pain to the anterior ankle. There is no visible or palpable deformity there is mild swelling of the ankle. He has no tenderness in the posterior ankle and has intact plantarflexion with squeezing of the calf. Intact sensation and pulses. No tenderness of the foot. Suspect ankle sprain, will obtain x-rays to exclude fracture. He has no findings on exam to suggest Achilles tendon injury. X-ray unremarkable and patient is stable with no new findings on exam. I suspect ankle sprain. Will place an ankle stabilizer, patient declines crutches as he is able to tolerate weightbearing. He is stable for discharge advised to follow-up with his PCP if pain is not improving in a week and return precautions given Differential Diagnosis Differential Diagnosis: sprain, fracture Imaging Data Radiologic Study: Attestation: I personally reviewed and interpreted this imaging study as follows: Imaging: X-Ray Radiologist's impression: no acute findings Quality:SDOH Health Related Social Needs: Health related social needs details No PFSH All Active Problems (Updated 07/20/24 @ 14:48 by Derrell Betancur MD) Right ankle sprain (Acute) Left shoulder pain (Acute) Insomnia (Acute) Left knee injury (Acute) Shortness of breath (Acute) Lipoma (Acute) 2 on abdomen and 1 on left arm. Family history of diabetes mellitus in father (Acute) Family history of hyperlipidemia (Acute) Attention deficit hyperactivity disorder (ADHD), predominantly hyperactive type (Acute 04/14/17) Medical History Concussion ADHD (attention deficit hyperactivity disorder) Surgical History Circumcision (~10/05/18) Family History Mother No problems noted. Father No problems noted. Brother No problems noted. Brother No problems noted. Brother No problems noted. Brother No problems noted. Maternal Grandfather Prostate cancer Paternal Grandfather , AGE 63 Cancer LUNG,LIVER,HEART,BRAIN Maternal Grandmother Alcohol abuse Breast cancer Paternal Grandmother No problems noted. Social History Smoking/Tobacco Use Status: Current every day Tobacco Type: e-cigarettes Tobacco: How many years used: 8 Quit status: considering quitting Smoking risk assessment performed?: Yes Alcohol Intake: current Alcohol Intake frequency: a few times a week Alcohol type: hard liquor Details: couple beers or twisted teas on the weekends Drug use: Daily Substance use type: marijuana Adopted: Yes Caregiver/Support person: No Household members: friend(s) Housing: house Communication Needs: None Do you need help understanding health information?: Rarely Pets and animals: Yes Pets and animals: cat(s) Sexually active: Yes Do you think of yourself as: straight/heterosexual Current gender identity: male What is your relationship status?: never How often do you talk on the phone with friends or family?: three or more times per week How often do you get together with friends or relatives?: three or more times per week How often do you attend hoahaoism or denominational services?: decline to answer Do you belong to any clubs or organized social groups?: no Panel score (0-1 are the most socially isolated patients): 1 What type of physical activity do you participate in: regular exercise Duration: > 90 minutes/day Frequency: 3-4 times per week Yeimi/Religious: No preference Special yeimi needs: No Seatbelt use: always Helmet use: Yes Do you feel safe at home: Yes Do you feel safe in your relationship?: Yes
--- NOTE | 2024-07-20 14:20 | DI.RAD_ITS ---
Exam(s) XR ANKLE RT COMPLETE EXAM: XR ANKLE RT COMPLETE CLINICAL HISTORY: pain s/p fall. TECHNIQUE: 2D digital imaging was performed. Three views. COMPARISON: CR RIGHT ANKLE COMPLETE from 05/31/2017 FINDINGS: BONES: No acute fracture is present. No bony destructive lesion is seen. Small heel spurs. JOINTS: The ankle mortise is normally aligned. SOFT TISSUE: Normal. IMPRESSION: Unremarkable radiographs of the right ankle. DATA REPOSITORY: RADIATION DOSE DELIVERED:
[2024-07-20] MEDS: Ibuprofen 600 MG TAB PO (14:47)
[2024-07-20 15:10] VITALS: BP 136/83; PULSE 68; RESP 16; TEMP 36.7; O2SAT 98
== END 2024-07-20 15:11 | disposition home or self-care (01) ==
PROVIDERS: Emergency Provider Emergency Medicine; PCP Nurse Practitioner Family
DX: S93.401A Sprain of unspecified ligament of right ankle, initial encounter (principal); W18.42XA Slipping, tripping and stumbling without falling due to stepping into hole or opening, initial encounter
CPT/HCPCS: 29515; 99283; 73610

== ENCOUNTER 2024-09-12 02:36 | Outpatient (CLI) | payer MEDICAID, SELFPAY ==
[2024-09-12 16:57] LABS: Hemoglobin A1C 5.2 % (<5.7)
[2024-09-12 18:06] LABS: Calculated LDL 38 mg/dL (<100); Cholesterol 131 mg/dL (<200); HDL Cholesterol 33 mg/dL (40-60); Triglyceride 304 mg/dL (<150)
== END 2024-09-12 02:37 | disposition home or self-care (01) ==
PROVIDERS: PCP Nurse Practitioner Family; Visit Provider Nurse Practitioner Family
DX: Z13.220 Encounter for screening for lipoid disorders (principal); Z13.1 Encounter for screening for diabetes mellitus
CPT/HCPCS: 36415; 80061; 83036

== ENCOUNTER 2024-12-16 14:52 | Outpatient (CLI) | payer MEDICAID, SELFPAY ==
--- NOTE | 2024-12-16 14:15 | DI.RAD_ITS ---
Exam(s) XR SHOULDER LT COMPLETE 2+V EXAM: XR SHOULDER LT COMPLETE 2+V CLINICAL HISTORY: Left shoulder pain,m25.512. TECHNIQUE: 2D digital imaging was performed. Five views. COMPARISON: CR XR SHOULDER LT COMPLETE 2+V from 06/28/2024 FINDINGS: BONES: No acute fracture is present. No bony destructive lesion is seen. JOINTS: No dislocation present. The AC joint is not widened. SOFT TISSUE: Normal. IMPRESSION: Unremarkable radiographs of the left shoulder. DATA REPOSITORY: RADIATION DOSE DELIVERED:
== END 2024-12-16 15:12 ==
LOC: DI 14:54
PROVIDERS: PCP Nurse Practitioner Family; Visit Provider Nurse Practitioner Family
DX: M25.512 Pain in left shoulder (principal)
CPT/HCPCS: 73030

== ENCOUNTER 2025-01-12 07:30 | Emergency (ER) | payer MEDICAID, SELFPAY ==
[2025-01-12 07:35] VITALS: BP 132/75; PULSE 79; RESP 16; TEMP 35.9; O2SAT 98
--- NOTE | 2025-01-12 07:46 | ED.GENADUL_ITS ---
Discharge Plan Disposition Patient Disposition: Home Discharge Details Clinical Impression: Skin lesion Primary Care Provider: Isac Dugan ED Provider: Shabbir Murdock Home Meds and New Rx's Prescriptions: No Action naproxen 500 mg tablet 500 mg PO BID PRN (Reason: pain) Qty: 30 0RF polyethylene glycol 3350 [Miralax] 17 gram/dose powder 17 g PO DAILY Qty: 119 2RF trazodone 50 mg tablet 50 mg PO QHS PRN (Reason: sleep) Qty: 60 0RF loratadine [Claritin] 10 mg tablet 10 mg PO DAILY Qty: 90 3RF albuterol sulfate 90 mcg/actuation HFA aerosol inhaler 2 puff inhalation Q6H PRN (Reason: shortness of breath or wheezing) Qty: 6.7 2RF lisdexamfetamine 40 mg capsule 40 mg PO DAILY MDD 40mg Qty: 28 0RF lisdexamfetamine [Vyvanse] 50 mg capsule 50 mg PO DAILY MDD 50mg of this pill Qty: 28 0RF Rx Instructions: take 50mg early afternoon (take other pill of 70mg in am) lisdexamfetamine 30 mg capsule 30 mg PO DAILY MDD 30mg Qty: 28 0RF acetaminophen 500 mg Capsule 1,000 mg PO Q6H PRN Discharge Instructions Additional Instructions: This is a small area in your bellybutton could be secondary to an irritated cyst. It does not appear to be consistent with an abscess or require incision and drainage. There is no evidence of a hernia. Please use warm compress and the ointment provided Return if you have worsening redness or the small area increases in size or you develop fevers or severe abdominal pain HPI General Date/Time Provider Initiated Documentation: 01/12/25 07:37 . Limitations to Documentation: no limitations . Information obtained by: patient . HPI Narrative: 24-year-old gentleman without significant past medical history presents for evaluation of red lesion in his bellybutton. He reports that it has been there for 3 days. He reports that this area comes and goes frequently. It usually last for a day or 2 and resolves spontaneously. He states that this is the longest that is ever lasted. He states that he has tried to squeeze it and pop it without any change or relief. There is been no drainage. There is some tenderness with palpation. No significant abdominal tenderness. Normal bowel movements. No vomiting. No fever. Related Data Home Medications ?Medication ?Instructions ?Recorded ?Confirmed acetaminophen 500 mg capsule 1,000 mg PO Q6H PRN 05/29/21 01/12/25 naproxen 500 mg tablet 500 mg PO BID PRN pain #30 tabs 01/29/22 01/12/25 polyethylene glycol 3350 17 17 g PO DAILY #119 grams 03/19/22 01/12/25 gram/dose oral powder (Miralax) loratadine 10 mg tablet (Claritin) 10 mg PO DAILY #90 tabs 05/18/24 01/12/25 albuterol sulfate 90 mcg/actuation 2 puff inhalation Q6H PRN 11/04/24 01/12/25 aerosol inhaler shortness of breath or wheezing #6.7 grams trazodone 50 mg tablet 50 mg PO QHS PRN sleep #60 tabs 12/16/24 01/12/25 lisdexamfetamine 30 mg capsule 30 mg PO DAILY #28 caps 01/04/25 01/12/25 lisdexamfetamine 40 mg capsule 40 mg PO DAILY #28 caps 01/04/25 01/12/25 lisdexamfetamine 50 mg capsule 50 mg PO DAILY #28 caps 01/04/25 01/12/25 (Vyvanse) Previous Rx's ?Medication ?Instructions ?Recorded naproxen 500 mg tablet 500 mg PO BID PRN pain #30 tabs 01/29/22 polyethylene glycol 3350 17 17 g PO DAILY #119 grams 03/19/22 gram/dose oral powder (Miralax) loratadine 10 mg tablet (Claritin) 10 mg PO DAILY #90 tabs 05/18/24 albuterol sulfate 90 mcg/actuation 2 puff inhalation Q6H PRN 11/04/24 aerosol inhaler shortness of breath or wheezing #6.7 grams trazodone 50 mg tablet 50 mg PO QHS PRN sleep #60 tabs 12/16/24 lisdexamfetamine 30 mg capsule 30 mg PO DAILY #28 caps 01/04/25 lisdexamfetamine 40 mg capsule 40 mg PO DAILY #28 caps 01/04/25 lisdexamfetamine 50 mg capsule 50 mg PO DAILY #28 caps 01/04/25 (Vyvanse) Allergies Allergy/AdvReac Type Severity Reaction Status Date / Time Penicillins Allergy Intermediate Hives Verified 01/12/25 07:36 General Stated Complaint: GenMedical SHAWN: 4 Exam Narrative Exam Narrative: Review of Systems: All systems reviewed & are unremarkable except as noted in HPI and below Well-developed, no acute distress NCAT Unlabored respiratory effort Nondistended abdomen , soft nontender Umbilical lesion noted around 4:00 at the base of the umbilicus that is approximately 2 mm, slightly erythematous, soft, mild tenderness with palpation no surrounding erythema. Is not indurated Appropriate mood and affect Course Vital Signs Vital signs: Vital Signs Temperature 35.9 C L 01/12/25 07:35 Pulse 79 01/12/25 07:35 Respiratory Rate 16 01/12/25 07:35 Blood Pressure 132/75 01/12/25 07:35 Pulse Oximetry 98 01/12/25 07:35 Temperature 35.9 C L 01/12/25 07:35 Temperature Source Tympanic 01/12/25 07:35 Pulse 79 01/12/25 07:35 Respiratory Rate 16 01/12/25 07:35 Blood Pressure 132/75 01/12/25 07:35 Pulse Oximetry 98 01/12/25 07:35 Oxygen Delivery Method Room Air 01/12/25 07:35 Oxygen Flow Rate 0 01/12/25 07:35 Medical Decision Making Emergent evaluation of a lesion noted in the umbilicus. This lesion is not consistent with an umbilical hernia, abscess or cellulitis. Suspect possible cyst given that he reports recurrence throughout the years. There may be some mild irritation given his tenderness, but he has been picking at it quite a bit. Recommend more gentle treatment of the area. Warm compress for comfort, but provided some topical bacitracin just to keep the area moist. Return precautions advised. Recommend following up with primary care as needed. Quality:SDOH Health Related Social Needs: Health related social needs details No PFSH All Active Problems (Updated 01/12/25 @ 07:46 by Shabbir Murdock MD) Skin lesion (Acute) Left shoulder pain (Acute) Insomnia (Acute) Left knee injury (Acute) Shortness of breath (Acute) Lipoma (Acute) 2 on abdomen and 1 on left arm. Family history of diabetes mellitus in father (Acute) Family history of hyperlipidemia (Acute) Attention deficit hyperactivity disorder (ADHD), predominantly hyperactive type (Acute 04/14/17) Medical History Concussion ADHD (attention deficit hyperactivity disorder) Surgical History Circumcision (~10/05/18) Family History Mother No problems noted. Father No problems noted. Brother No problems noted. Brother No problems noted. Brother No problems noted. Brother No problems noted. Maternal Grandfather Prostate cancer Paternal Grandfather , AGE 63 Cancer LUNG,LIVER,HEART,BRAIN Maternal Grandmother Alcohol abuse Breast cancer Paternal Grandmother No problems noted. Social History Smoking/Tobacco Use Status: Current every day Tobacco Type: e-cigarettes Tobacco: How many years used: 8 Quit status: considering quitting Smoking risk assessment performed?: Yes Alcohol Intake: current Alcohol Intake frequency: a few times a week Alcohol type: hard liquor Details: couple beers or twisted teas on the weekends Drug use: Daily Substance use type: marijuana Adopted: Yes Caregiver/Support person: No Household members: friend(s) Housing: house Communication Needs: None Do you need help understanding health information?: Rarely Pets and animals: Yes Pets and animals: cat(s) Sexually active: Yes Do you think of yourself as: straight/heterosexual Current gender identity: male What is your relationship status?: never How often do you talk on the phone with friends or family?: three or more times per week How often do you get together with friends or relatives?: three or more times per week How often do you attend sabianist or yazidi services?: decline to answer Do you belong to any clubs or organized social groups?: no Panel score (0-1 are the most socially isolated patients): 1 What type of physical activity do you participate in: regular exercise Duration: > 90 minutes/day Frequency: 3-4 times per week Yeimi/Jehovah'S Witness: No preference Special yeimi needs: No Seatbelt use: always Helmet use: Yes Do you feel safe at home: Yes Do you feel safe in your relationship?: Yes PAWSS Have you Been Recently Intoxicated or Drunk Within the Last 30 days?: No Have you Ever Experienced Previous Episodes of Alcohol Withdrawal?: No Have you ever Experienced Withdrawal Seizures?: No Have you ever Experienced Delirium Tremens(DT)s?: No Have you ever undergone Alcohol Rehabilitation Treatment (i.e, inpt ot outpatient treatment programs)?: No Have you ever Experienced Blackouts?: No Have you ever Combined Alcohol with other Downers within the last 90 days?: No Have you ever Combined Alcohol with any other Substance of Abuse during the last 90 days?: No Result: 0
== END 2025-01-12 16:50 | disposition home or self-care (01) ==
LOC: ER 07:53
PROVIDERS: Emergency Provider Emergency Medicine; PCP Nurse Practitioner Family
DX: L98.9 Disorder of the skin and subcutaneous tissue, unspecified (principal); F17.290 Nicotine dependence, other tobacco product, uncomplicated
CPT/HCPCS: 99282; 99283

== ENCOUNTER 2025-03-07 09:23 | Outpatient (CLI) | payer MEDICAID, SELFPAY ==
--- NOTE | 2025-03-07 09:07 | DI.RAD_ITS ---
Exam(s) XR CHEST 2V PA LATERAL EXAM: XR CHEST 2V PA LATERAL CLINICAL HISTORY: worsening sob, r06.02 TECHNIQUE: 2D digital imaging was performed. Two views. COMPARISON: No exams were available for comparison FINDINGS: HEART: Normal size. Aorta: Not dilated. PULMONARY VASCULATURE: Normal. MEDIASTINUM: Unremarkable. LUNGS: Clear. PLEURAL SPACE: No pleural effusion or pneumothorax. BONE:Unremarkable for age. SOFT TISSUES: Unremarkable. IMPRESSION: No acute abnormality. DATA REPOSITORY: RADIATION DOSE DELIVERED:
== END 2025-03-07 09:43 ==
LOC: DI 09:24
PROVIDERS: PCP Nurse Practitioner Family; Visit Provider Nurse Practitioner Family
DX: R06.02 Shortness of breath (principal)
CPT/HCPCS: 71046

== ENCOUNTER 2025-03-09 01:12 | Outpatient (CLI) | payer MEDICAID, SELFPAY ==
[2025-03-09] MEDS: Inhaler, Assist Device 1 EACH MC (09:00)
[2025-03-09] MEDS: Levalbuterol HFA 15 GM INH 4 PUFF IH (09:00)
--- NOTE | 2025-03-15 10:36 | W.PFT ---
Date of service: 03/09/25 Time of Service: 07:59 Pulmonary Function Test Result Indications: Dyspnea Interpretation Spirometry: There is moderate airflow limitation. There is a bronchodilator response. Lung Volumes: Normal lung volumes Diffusion Capacity: Normal diffusion Airway Pressure: Increased airways resistance Impression Moderate airflow obstruction with a bronchodilator response and normal diffusion. Clinical Correlation therefore is recommended.
== END 2025-03-09 01:13 | disposition home or self-care (01) ==
LOC: RT 01:12
PROVIDERS: PCP Nurse Practitioner Family; Visit Provider Student in an Organized Health Care Education/Training Program
DX: R06.09 Other forms of dyspnea (principal)
CPT/HCPCS: 94060; 94726; 94729

== ENCOUNTER 2025-08-09 19:00 | Emergency (ER) | payer MEDICAID, SELFPAY ==
[2025-08-09 19:18] VITALS: BP 125/71; PULSE 57; RESP 20; TEMP 36.6; O2SAT 97
[2025-08-09 19:46] VITALS: BP 125/71; PULSE 57; RESP 20; TEMP 36.6; O2SAT 97
[2025-08-09 19:48] VITALS: BP 133/76; PULSE 63; RESP 16; O2SAT 97
--- NOTE | 2025-08-09 19:56 | ED.GENADUL_ITS ---
Discharge Plan Disposition Patient Disposition: Home Condition: Stable Discharge Details Clinical Impression: Hernia, umbilical Primary Care Provider: Isac Dugan ED Provider: Derrell Betancur Home Meds and New Rx's Prescriptions: Continued naproxen 500 mg tablet 500 mg PO BID PRN (Reason: pain) Qty: 30 0RF polyethylene glycol 3350 [Miralax] 17 gram/dose powder 17 g PO DAILY Qty: 119 2RF budesonide-formoterol [Symbicort] 80-4.5 mcg/actuation HFA aerosol inhaler 2 puff inhalation Q4H PRN PRN (Reason: wheezing/SOB) Qty: 10.2 0RF loratadine [Claritin] 10 mg tablet 10 mg PO DAILY Qty: 90 3RF lisdexamfetamine 70 mg capsule 70 mg PO DAILY MDD one tablet Qty: 28 0RF lisdexamfetamine [Vyvanse] 50 mg capsule 50 mg PO DAILY MDD 50mg of this pill Qty: 28 0RF Rx Instructions: take 50mg early afternoon (take other pill of 70mg in am) trazodone 50 mg tablet 50 mg PO QHS PRN (Reason: sleep) Qty: 60 0RF albuterol sulfate 90 mcg/actuation HFA aerosol inhaler 2 puff inhalation Q6H PRN (Reason: shortness of breath or wheezing) Qty: 6.7 2RF acetaminophen 500 mg Capsule 1,000 mg PO Q6H PRN Discharge Instructions Additional Instructions: He did not have a palpable hernia on exam. You can take 1000 mg of acetam inophen and 600 mg of ibuprofen every 6 hours as needed. Follow-up as scheduled general surgery. If you feel more ill, have new symptoms such as high fevers or persistent vomiting return to the emergency department for reevaluation. HPI General Mode of arrival: ambulatory . Date/Time Provider Initiated Documentation: 08/09/25 19:03 . Limitations to Documentation: no limitations . Information obtained by: patient . History of Present Illness 25 year old M presents to the emergency department with the chief complaint of umbilical hernia pain, described as moderate, Quality is described as aching, Patient started experiencing this year(s) (2) No relieving factors improve symptom(s), No exacerbating factors reported . Patient notes no other symptoms.. Patient did receive the following treatments prior to arrival, none Related Data Home Medications ?Medication ?Instructions ?Recorded ?Confirmed acetaminophen 500 mg capsule 1,000 mg PO Q6H PRN 05/2908/09/25 naproxen 500 mg tablet 500 mg PO BID PRN pain #30 t abs 01/29/22 08/09/25 polyethylene glycol 3350 17 17 g PO DAILY #119 grams 0 03/19/22 08/09/25 gram/dose oral powder (Miralax) loratadine 10 mg tablet (Claritin) 10 mg PO DAILY #90 tabs 03/07/25 08/09/25 budesonide-formoterol HFA 80 2 puff inhalation Q4H PRN PRN 06/21/25 08/09/25 mcg-4.5 mcg/actuation aerosol wheezing/SOB #10.2 grams inhaler (Symbicort) lisdexamfetamine 50 mg capsule 50 mg PO DAILY #28 caps 07/17/25 08/09/25 (Vyvanse) lisdexamfetamine 70 mg capsule 70 mg PO DAILY #28 caps 07/17/25 08/09/25 trazodone 50 mg tablet 50 mg PO QHS PRN sleep #60 t abs 07/21/25 08/09/25 albuterol sulfate 90 mcg/actuation 2 puff inhalation Q 6H PRN 08/03/25 08/09/25 aerosol inhaler shortness of breath or wheez ing #6.7 grams Previous Rx's ?Medication ?Instructions ?Recorded naproxen 500 mg tablet 500 mg PO BID PRN pain #30 t abs 01/29/22 polyethylene glycol 3350 17 17 g PO DAILY #119 grams 0 03/19/22 gram/dose oral powder (Miralax) loratadine 10 mg tablet (Claritin) 10 mg PO DAILY #90 tabs 03/07/25 budesonide-formoterol HFA 80 2 puff inhalation Q4H PRN PRN 06/21/25 mcg-4.5 mcg/actuation aerosol wheezing/SOB #10.2 grams inhaler (Symbicort) lisdexamfetamine 50 mg capsule 50 mg PO DAILY #28 caps 07/17/25 (Vyvanse) lisdexamfetamine 70 mg capsule 70 mg PO DAILY #28 caps 07/17/25 trazodone 50 mg tablet 50 mg PO QHS PRN sleep #60 t abs 07/21/25 albuterol sulfate 90 mcg/actuation 2 puff inhalation Q 6H PRN 08/03/25 aerosol inhaler shortness of breath or wheez ing #6.7 grams Allergies Allergy/AdvReac Type Severity Reaction Status Date / Time Penicillins Allergy Intermediate Hives Verified 08/09/25 19:22 General Stated Complaint: Abd Prob SHAWN: 3 Review of Systems All systems reviewed & are unremarkable except as noted in HPI and below Constitutional Constitutional: Denies chills and Denies fever(s) Cardiovascular Cardiovascular: Denies chest pain and Denies dyspnea Respiratory Respiratory: Denies cough and Denies dyspnea Gastrointestinal Gastrointestinal: Reports abdominal pain, Denies nausea and Denies vomiting Exam Const General: no acute distress Orientation: alert HENMT Head: normal to inspection Ears: external ears normal General nose exam: external nose normal Mouth: moist mucous membranes Eyes General: appearance normal, both eyes and all related structures Neck Neck: normal visual inspection Resp Effort & Inspection: normal respiratory effort and able to speak in complete sentences Cardio Rate: regular rate GI Palpation: soft and no hernias Skin General skin exam: no rashes or lesions noted Neuro General: patient alert and patient oriented x3 Extrem General: normal to inspection Psych Mental Status: mental status grossly normal Course Vital Signs Vital signs: Vital Signs Temperature 36.6 C 08/09/25 19:18 Pulse 57 L 08/09/25 19:18 Respiratory Rate 20 08/09/25 19:18 Blood Pressure 125/71 08/09/25 19:18 Pulse Oximetry 97 08/09/25 19:18 Temperature 36.6 C 08/09/25 19:46 Temperature Source Oral 08/09/25 19:46 Pulse 63 08/09/25 19:48 Respiratory Rate 16 08/09/25 19:48 Blood Pressure 133/76 08/09/25 19:48 Blood Pressure Mean 95 08/09/25 19:48 Blood Pressure Position Sitting 08/09/25 19:46 Pulse Oximetry 97 08/09/25 19:48 Oxygen Delivery Method Room Air 08/09/25 19:48 Oxygen Flow Rate 0 08/09/25 19:48 Pain Level 8 08/09/25 19:46 Medical Decision Making 25-year-old male who has intermittent umbilical hernia and is scheduled to have surgery next week comes in with question if he still has a hernia he can reduce. He was seen in [facility] and is not sure if they reduced it so came here. He has not had any vomiting, no fevers or chills. Has been having normal bowel movements. He has no palpable hernia in the umbilical region, there is no masses. I suspect he had a reduced hernia and has mild tenderness in this area. Discussed if feels like it is reduced, discussion about doing a CT to confirm but given lack of palpable masses on exam the likelihood of it being negative is high and patient does not want to go through with radiation which I feel is reasonable. He will follow-up with general surgery and return precautions give n. Differential Diagnosis Differential Diagnosis: hernia, reduce hernia Quality:SDOH Health Related Social Needs: Health related social needs details No PFSH All Active Problems (Updated 08/09/25 @ 19:58 by Derrell Betancur MD) Hernia, umbilical (Acute) Umbilical hernia (Acute) Left shoulder pain (Acute) Insomnia (Acute) Left knee injury (Acute) Shortness of breath (Acute) Lipoma (Acute) 2 on abdomen and 1 on left arm. Family history of diabetes mellitus in father (Acute) Family history of hyperlipidemia (Acute) Attention deficit hyperactivity disorder (ADHD), predominantly hyperactive type (Acute 04/14/17) Medical History Concussion ADHD (attention deficit hyperactivity disorder) Surgical History Circumcision (~10/05/18) Family History Mother No problems noted. Father No problems noted. Brother No problems noted. Brother No problems noted. Brother No problems noted. Brother No problems noted. Maternal Grandfather Prostate cancer Paternal Grandfather , AGE 63 Cancer LUNG,LIVER,HEART,BRAIN Maternal Grandmother Alcohol abuse Breast cancer Paternal Grandmother No problems noted. Social History Smoking/Tobacco Use Status: Current every day Tobacco Type: e-cigarettes Tobacco: How many years used: 8 Quit status: considering quitting Smoking risk assessment performed?: Yes Alcohol Intake: current Alcohol Intake frequency: a few times a week Alcohol type: hard liquor Details: couple beers or twisted teas on the weekends Drug use: Daily Substance use type: marijuana Adopted: Yes Caregiver/Support person: No Household members: friend(s) Housing: house Communication Needs: None Do you need help understanding health information?: Rarely Pets and animals: Yes Pets and animals: cat(s) Sexually active: Yes Do you think of yourself as: straight/heterosexual Current gender identity: male What is your relationship status?: never How often do you talk on the phone with friends or family?: three or more times per week How often do you get together with friends or relatives?: three or more times per week How often do you attend mormonism or yazdanism services?: decline to answer Do you belong to any clubs or organized social groups?: no Panel score (0-1 are the most socially isolated patients): 1 What type of physical activity do you participate in: regular exercise Duration: > 90 minutes/day Frequency: 3-4 times per week Yeimi/Confucianism: No preference Special yeimi needs: No Seatbelt use: always Helmet use: Yes Do you feel safe at home: Yes Do you feel safe in your relationship?: Yes
[2025-08-09] MEDS: Ibuprofen 600 MG TAB PO (19:57)
[2025-08-09 20:05] VITALS: BP 133/76; PULSE 63; RESP 16; O2SAT 97
== END 2025-08-09 20:08 | disposition home or self-care (01) ==
PROVIDERS: Emergency Provider Emergency Medicine; PCP Nurse Practitioner Family
DX: K42.9 Umbilical hernia without obstruction or gangrene (principal); F17.290 Nicotine dependence, other tobacco product, uncomplicated
CPT/HCPCS: 99283

== ENCOUNTER 2025-08-21 08:42 | Day surgery (SDC) | payer MEDICAID, SELFPAY ==
[2025-08-21] VITALS (26 sets, daily range): BP systolic 88–123; BP diastolic 38–63; PULSE 47–103; RESP 11–24; TEMP 36.1–36.6; O2SAT 87–100; BMI 26.7
--- NOTE | 2025-08-21 08:14 | W.PM.DSUDISC ---
Date of service: 08/21/25 Discharge Plan Disposition Patient Disposition: Home Condition: Stable Discharge Details Attending Provider: Agustina Su Primary Care Provider: Isac Dugan Home Meds and New Rx's Prescriptions: New hydrocodone-acetaminophen 5-325 mg tablet 1 tab PO Q6H PRNQty: 10 0RF Continued naproxen 500 mg tablet 500 mg PO BID PRN (Reason: pain) Qty: 30 0RF polyethylene glycol 3350 [Miralax] 17 gram/dose powder 17 g PO DAILY Qty: 119 2RF budesonide-formoterol [Symbicort] 80-4.5 mcg/actuation HFA aerosol inhaler 2 puff inhalation Q4H PRN PRN (Reason: wheezing/SOB) Qty: 10.2 0RF loratadine [Claritin] 10 mg tablet 10 mg PO DAILY Qty: 90 3RF trazodone 50 mg tablet 50 mg PO QHS PRN (Reason: sleep) Qty: 60 0RF albuterol sulfate 90 mcg/actuation HFA aerosol inhaler 2 puff inhalation Q6H PRN (Reason: shortness of breath or wheezing) Qty: 6.7 2RF lisdexamfetamine [Vyvanse] 50 mg capsule 50 mg PO DAILY MDD 50mg of this pill Qty: 28 0RF Rx Instructions: take 50mg early afternoon (take other pill of 70mg in am) lisdexamfetamine 70 mg capsule 70 mg PO DAILY MDD one tablet Qty: 28 0RF acetaminophen 500 mg Capsule 1,000 mg PO Q6H PRN Discharge Instructions Additional Instructions: Additional Instructions: Shower in 48 hours. Wash gently over steristrips with soapy hands, rinse, pat dry. Don't peel strips or submerge incisions under water. Do not clean the incisions with rubbing alcohol or any solvents beyond your regular soap/body wash and water. The longer the strips stay on, the nicer the scar heals. Tuch dry gauze into the belly button daily to help wick out moisture. Moisture inside the belly button is the enemy of healing, so keep it as dry as possible. It will be sore, but blot it deeply after showering, and change out the gauze from inside of it more often than once a day if needed to keep it dry. Ok to walk, climb stairs, and resume normal activities of daily living. Do not lift/push/pull more than 20lb for 4 weeks. Do not exercise until cleared by surgeon in office. Monitor yourself for constipation during recovery. Add a stool softener or laxative if no BM within 36 hours. Use ibuprofen along with or instead of prescribed pain medicine. It will help with pain if you take the two together. Call or return for fever or incisional problems Activity:: See instructions. Shower/Bathe:: 48 hours Diet:: As Tolerated Stand Alone Forms: Anesthesia Discharge Inst., Azul Deluna (DSU) Discharge Orders Discharge Orders: Discharge Order (Routine); Ordered 08/21/25 Ordered By: Agustina Su DS: Diagnosis Discharge Diagnosis (1) Hernia, umbilical: Status: Acute (2) Infected umbilical granuloma: Status: Acute
[2025-08-21] MEDS: Lactated Ringers 1,000 ML 80 ML IV (09:25)
--- NOTE | 2025-08-21 09:33 | HPE_ITS ---
Date of service: 08/21/25 Time of Service: 09:33 Assessment and Plan Assessment and plan (1) Umbilical hernia: Status: Acute Assessment and plan: 1. Umbilical hernia with chronic intermittant pain, redness and drainage. The presence of brown drainage from the umbilicus suggests an underlying condition separate from the hernia, possibly a skin cyst or a persistent pimple or blister. The hernia is small enough to be closed without mesh, reducing the risk of infection of the mesh through whatever process causes the drainage. An open primary repair of the umbilical hernia is planned today. Risks of surgery, including pain, bleeding, infection, and recurrence, were discussed in detail. The patient was advised to abstain from smoking for 6 weeks post-surgery to reduce the risk of recurrence. 20lb lifting restriction was reviewed. If a recurrence occurs, a future repair w mesh may be necessary. To OR. I will excise any granuloma or cyst within the umbilicus today to ensure no reinfection or issue w mesh placement in the future if this primary repair does not hold. (2) Infected umbilical granuloma: Status: Acute History of Present Illness History of Present Illness Chief Complaint: umbilical hernia surgery Narrative: 25yo M here for primary umbilical hernia repair and umbilical exploration. He was seen in office 07/14/25 and the HPI from that visit is as follows for reference: The patient presents for evaluation of an umbilical hernia. Approximately 2 to 3 years ago, he strained himself while trying to catch a falling object at his workplace in [place]. Two days later, a bump appeared in his belly button, which was initially diagnosed as a cyst by a doctor. However, his primary care physician later confirmed it to be a hernia. The hernia is triggered by physical strain and typically appears within 3 days of such activity. The size of the bulge varies, sometimes as large as a grape and other times as small as a blueberry. He describes a sensation of hardness when pressing on his belly button. The hernia has been discharging fluid intermittently, with the last episode occurring about 6 months ago, characterized by either bleeding or brownish fluid. 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 He recently discovered that he could manually reduce the hernia, and it has not recurred since then due to his careful avoidance of straining activities. He has no history of abdominal surgery and is interested in exploring treatment options for the hernia. PFSH All Active Problems (Updated 08/21/25 @ 09:34 by Agustina Su MD) Infected umbilical granuloma (Acute) Hernia, umbilical (Acute) Umbilical hernia (Acute) Left shoulder pain (Acute) Insomnia (Acute) Left knee injury (Acute) Shortness of breath (Acute) Lipoma (Acute) 2 on abdomen and 1 on left arm. Family history of diabetes mellitus in father (Acute) Family history of hyperlipidemia (Acute) Attention deficit hyperactivity disorder (ADHD), predominantly hyperactive type (Acute 04/14/17) Medical History (Updated 08/21/25 @ 09:34 by Agustina Su MD) Arm fracture, right Concussion ADHD (attention deficit hyperactivity disorder) Surgical History (Updated 08/21/25 @ 09:05 by Gala Arriola) Circumcision (~10/05/18) pt denies surgery in 2018; circumcised at Family History Mother No problems noted. Father No problems noted. Brother No problems noted. Brother No problems noted. Brother No problems noted. Brother No problems noted. Maternal Grandfather Prostate cancer Paternal Grandfather , AGE 63 Cancer LUNG,LIVER,HEART,BRAIN Maternal Grandmother Alcohol abuse Breast cancer Paternal Grandmother No problems noted. Social History Smoking/Tobacco Use Status: Current every day Tobacco Type: e-cigarettes Tobacco: How many years used: 8 Quit status: considering quitting Smoking risk assessment performed?: Yes Alcohol Intake: current Alcohol Intake frequency: a few times a week Alcohol type: hard liquor Details: couple beers or twisted teas on the weekends Drug use: Daily Substance use type: marijuana Details: last smoke last night Adopted: Yes Caregiver/Support person: No Household members: friend(s) Housing: apartment Communication Needs: None Do you need help understanding health information?: Rarely Pets and animals: Yes Pets and animals: cat(s) Sexually active: Yes Do you think of yourself as: straight/heterosexual Current gender identity: male What is your relationship status?: never How often do you talk on the phone with friends or family?: three or more times per week How often do you get together with friends or relatives?: three or more times per week How often do you attend episcopal or caodaism services?: decline to answer Do you belong to any clubs or organized social groups?: no Panel score (0-1 are the most socially isolated patients): 1 What type of physical activity do you participate in: regular exercise Duration: > 90 minutes/day Frequency: 3-4 times per week Yeimi/Yarsanism: No preference Special yeimi needs: No Seatbelt use: always Helmet use: Yes Additional Social history: [facility] Meds Allergies and Home Medications Allergies Allergy/AdvReac Type Severity Reaction Status Date / Time Penicillins Allergy Intermediate Hives Verified 08/17/25 14:19 Home Medications ?Medication ?Instructions ?Recorded ?Confirmed ?Type acetaminophen 500 mg capsule 1,000 mg PO Q6H PRN 05/2908/21/25 History naproxen 500 mg tablet 500 mg PO BID PRN pain #30 t abs 01/29/22 08/21/25 Rx polyethylene glycol 3350 17 17 g PO DAILY #119 grams 0 03/19/22 08/21/25 Rx gram/dose oral powder (Miralax) loratadine 10 mg tablet (Claritin) 10 mg PO DAILY #90 tabs 03/07/25 08/21/25 Rx budesonide-formoterol HFA 80 2 puff inhalation Q4H PRN PRN 06/21/25 08/21/25 Rx mcg-4.5 mcg/actuation aerosol wheezing/SOB #10.2 grams inhaler (Symbicort) trazodone 50 mg tablet 50 mg PO QHS PRN sleep #60 t abs 07/21/25 08/21/25 Rx albuterol sulfate 90 mcg/actuation 2 puff inhalation Q 6H PRN 08/03/25 08/21/25 Rx aerosol inhaler shortness of breath or wheez ing #6.7 grams lisdexamfetamine 50 mg capsule 50 mg PO DAILY #28 caps 08/14/25 08/21/25 Rx (Vyvanse) lisdexamfetamine 70 mg capsule 70 mg PO DAILY #28 caps 08/14/25 08/21/25 Rx hydrocodone 5 mg-acetaminophen 325 1 tab PO Q6H PRN #1 0 tabs 08/21/25 Rx mg tablet Exam Narrative Exam Narrative: awake, NAD eomi, MMM midline trachea, neck is symmetric PULM: normal resp effort, equal chest rise with respiration, no wheezing audible CARDIAC: normal PMI, no jvd, regular rate, normal perfusion abdomen is nondistended. umbilicus w mild erythema and dry brown crusting within the umbilical folds. Reducible hernia present. blister within umbilical skin 4mm by 3mm visible. extremities are without deformity, normal movement of all four extremities speech is clear and coherent mood and affect are congruent, no focal neurological deficits skin without rash Results Last Vital Signs Temp 97.9 F 08/21/25 08:45 Pulse 59 L 08/21/25 08:45 Resp 16 08/21/25 08:45 BP 109/62 08/21/25 08:45 Pulse Ox 98 08/21/25 08:45 Time Spent Time spent with Patient: <40 minutes Time was spent: preparing to see the patient(eg.review tests), referring, communicating with other health care transitions nurse and counseling the patient
--- NOTE | 2025-08-21 09:35 | ANES.PREOP_ITS ---
General Info Date of Service Date Performed: 08/21/25 Height: 6 ft 1 in Weight: 92 kg Body Mass Index (BMI): 26.7 Surgical Procedure: Operation Date: 08/21/25 09:55 Proposed Procedure Side Surgeon p Herniorrhaphy Umbilical Agustina Su MD Actual Procedure Side Surgeon p Herniorrhaphy Umbilical Agustina Su MD Pre-Op Diagnosis Post-Op Diagnosis Umbilical hernia Meds Allergies and Home Medications Allergies Allergy/AdvReac Type Severity Reaction Status Date / Time Penicillins Allergy Intermediate Hives Verified 08/17/25 14:19 Home Medication ?Medication ?Instructions ?Recorded acetaminophen 500 mg capsule 1,000 mg PO Q6H PRN 05/29 naproxen 500 mg tablet 500 mg PO BID PRN pain #30 t abs 01/29/22 polyethylene glycol 3350 17 17 g PO DAILY #119 grams 0 03/19/22 gram/dose oral powder (Miralax) loratadine 10 mg tablet (Claritin) 10 mg PO DAILY #90 tabs 03/07/25 budesonide-formoterol HFA 80 2 puff inhalation Q4H PRN PRN 06/21/25 mcg-4.5 mcg/actuation aerosol wheezing/SOB #10.2 grams inhaler (Symbicort) trazodone 50 mg tablet 50 mg PO QHS PRN sleep #60 t abs 07/21/25 albuterol sulfate 90 mcg/actuation 2 puff inhalation Q 6H PRN 08/03/25 aerosol inhaler shortness of breath or wheez ing #6.7 grams lisdexamfetamine 50 mg capsule 50 mg PO DAILY #28 caps 08/14/25 (Vyvanse) lisdexamfetamine 70 mg capsule 70 mg PO DAILY #28 caps 08/14/25 hydrocodone 5 mg-acetaminophen 325 1 tab PO Q6H PRN #1 0 tabs 08/21/25 mg tablet Current Visit Medications: Current Medications Generic Name Dose Route Start Last Admin Trade Name Freq PRN Reason Stop Dose Admin Ringer's Solution 1,000 mls @ 80 mls/hr 08/21/25 06:00 08/21/25 09:25 IV 08/21/25 23:59 80 mls/hr INFUSION KWAN Administration Cefazolin Sodium/Dextrose 2 gm in 50 mls @ 100 mls/hr 08/21/25 06:00 Ancef Duplex IVPB 08/21/25 23:59 PREOP KWAN IV Miscellaneous Supplies 1 each 08/21/25 06:00 Iv Access IV 08/21/25 23:59 DIRECTED KWAN Sodium Chloride 0 ml 08/21/25 06:00 Normal Saline Flush 10 Ml Syr IV 08/21/25 23:59 PRN PRN Sodium Chloride 0 ml 08/21/25 06:00 Normal Saline 10 Ml Vial IJ 08/21/25 23:59 DIRECTED PRN Sterile Water 0 ml 08/21/25 06:00 Water,Injection,Sterile 10 Ml Vial IJ 08/21/25 23:59 DIRECTED PRN PFSH Active Problems Active Problems: Problem Status Onset Code Infected umbilical granuloma Acute P83.81, B99.9 Hernia, umbilical Acute K42.9 Umbilical hernia Acute K42.9 Left shoulder pain Acute M25.512 Insomnia Acute G47.00 Left knee injury Acute S89.92XA Shortness of breath Acute R06.02 Lipoma Acute D17.9 Family history of diabetes mellitus in father Acute Z83.3 Family history of hyperlipidemia Acute Z83.438 Attention deficit hyperactivity disorder (ADHD), predominantly hyperactive type Acute 04/14/17 F90.1 Medical History Medical History (Updated 08/21/25 @ 09:34 by Agustina Su MD) Arm fracture, right Concussion ADHD (attention deficit hyperactivity disorder) Medical History Comments:: last smoke last night marijauna; 1 e-cigarette this morning Surgical History Surgical History (Updated 08/21/25 @ 09:05 by Gala Arriola) Circumcision (~10/05/18) pt denies surgery in 2018; circumcised at Tobacco Smoking/Tobacco Use Status: Current every day Tobacco Type: e-cigarettes Passive smoking exposure: Yes Alcohol Alcohol Intake: current Alcohol intake frequency: a few times a week Alcohol type: hard liquor Details: couple beers or twisted teas on the weekends Substance Use Substance use: Daily Substance use type: marijuana Details: last smoke last night Vital Signs and Lab Results Vital Signs Most Recent Vital Signs in EMR: Most Recent Vital Signs Temp Pulse Resp BP Pulse Ox 36.6 C 59 L 16 109/62 98 08/21/25 08:45 08/21/25 08:45 08/21/25 08:45 08/21/25 08:45 08/21/25 08:45 Anesthesia Assessment and Plan Anesthesia History Personal History: No History of General Anesthesia Family History: No Family History of Anesthesia Complications Exercise Tolerance Exercise Tolerance: Metabolic Equivalents>4 Pertinent Negatives Pertinent Negatives: No Symptoms of GERD Cardiac & Pulmonary Exam Cardiac Exam: Normal S1/S2 Heart Sounds Pulmonary Exam: Clear Bilateral Breath Sounds Implantable Cardiac Device Does patient have a Pacemaker or an ICD?: No Airway Exam Known Difficult Airway: No Mallampati Class: 2 Mouth Opening: Normal (> 3cm) Thyromental Distance: Greater than 3 cm Neck Range of Motion: Full ROM Neck Circumference: Normal Teeth Condition: Normal Dentition ASA Classification ASA Score: ASA 2 Emergency Case?: No NPO Status NPO Status: NPO Clears >2 hours, Solids >8 hours Anesthesia Plan Resuscitation Status: Full Code Anesthesia Technique: General Anesthesia Airway Planned: LMA Monitors Used: Standard Monitors and SedLine
[2025-08-21] MEDS: ceFAZolin 2 GM/50 ML BAG IVPB (09:56)
[2025-08-21] MEDS: Bupivacaine 0.5% Pres-Free W/EPI 30 ML VIAL (10:12)
--- NOTE | 2025-08-21 10:25 | SKI_PTH ---
PATIENT: Davide Adrian LOC: [facility] U#:[id number] AGE/SX: 25/M ROOM: RE08/21/[address]: Agustina Su MD : [id number] BED: DIS: 08/21/2025 SPEC #: [id number] RECD: 08/21/25 12:43 STATUS: JANET RENeftali #: [id number] KEENAN: 08/21/25 10:[address]: Agustina Su DEPT: Surgical Specimen RECD BY: Radha Kang ENTERED: 08/21/25 12:44 SP TYPE: VINICIO RODRIGUEZ DR: Isac Dugan, COD CLERK Tissues: 1 - SKIN BIOPSY(SHAVE/PUNCH) Procedures: SKIN LEVEL 4 Comments: [id number]
--- NOTE | 2025-08-21 11:04 | W.PM.OP ---
Operative Note Operative Note PRE-OP DIAGNOSIS: Umbilical hernia, umbilical drainage and suspected granuloma POST-OP DIAGNOSIS: same (tiny umbilical hernia, granuloma of umbilicus) PROCEDURE: 1. Umbilical exploration and excision of umbilical skin lesion/granuloma. 2. Primary repair of umbilical hernia. SURGEON: Agustina Su SENIOR REGULATORY AFFAIRS SPECIALIST: Chetan Vazquez ANESTHESIA TYPE: Local By Surgeon and General LMA/ETT Refer to Anesthesia Record ESTIMATED BLOOD LOSS: 5 PATHOLOGY: other (1. umbilical skin lesion) COMPLICATIONS: None Procedure Description: This patient is a 25-year-old male who presented to the office with an umbilical hernia. He had a draining umbilical lesion as well. His history was consistent with a small umbilical hernia and an umbilical granuloma versus other skin lesion of the umbilicus. The drainage and chronic intermittant infection is a contraindication to mesh repair of the umbilical hernia. We discussed primary repair and local exploration for granuloma or other cause for drainage and pain. We discussed the procedure risks and benefits and alternatives and expectations. We discussed primary repair of umbilical hernia and the 50% hernia recurrence risk associated with it. We discussed that if his hernia recurs he will need a formal repair with mesh, and that suture granuloma or granuloma management now is essential to be able to do this in the future. Informed consent was obtained and the patient was taken to the operating room on the day of surgery. He was placed supine on the operating table. SCDs were placed and all pressure points were padded appropriately. Timeout was performed. General anesthesia was induced and the skin of the abdomen was clipped prepped and draped in the usual sterile fashion. Local anesthetic was infiltrated into the skin fascia around the umbilicus. Infraumbilical incision was made with a scalpel and subcutaneous tissues divided using cautery. The umbilical stalk was dissected free and opened. A small umbilical hernia with preperitoneal fat bulging was identified. The preperitoneal fat was reduced and the umbilical hernia defect examined. It measured approximately 5 mm in diameter. A single 0 Ethibond suture [id number] stitch was used to close the umbilical hernia defect in a primary fashion. The umbilicus was inverted and the skin of the umbilicus examined. On the inferior 6:00 aspect of the umbilical skin there was a 9mm by 4mm skin lesion that appeared infected and inflamed and hypergranulated. There was evidence of chronicity. The lesion was ellipsed out to normal skin borders. The lesion was removed sharply and passed off the field as a specimen. The skin of the umbilicus was reapproximated using 4-0 running monocryl suture. The umbilical stalk was then tacked back down to the fascia using monocryl suture. The skin was then closed at the infraumbilical incision using simple interrupted subcuticular monocryl sutures. The skin was washed and dried. Steristrips were applied. A gauze was tucked into the umbiicus and taped in place. All sponge and instrument counts were correct at the end of the case. The patient tolerated the procedure well. He woke from anesthesia in the operating room and transferred to recovery in stable condition. Date of Procedure: 08/21/25
[2025-08-21] MEDS: ePHEDrine 25 MG/5 ML Syringe IVP ×2 (11:08→11:17)
--- NOTE | 2025-08-21 11:19 | W.PM.ENDDOP ---
Date of service: 08/21/25 Time of Service: 11:19 Endoscopy Report PRE-OP DIAGNOSIS: Barretts esophagus POST-OP DIAGNOSIS: same PROCEDURE: EGD with biopsy for Barretts surveillance SURGEON: Agustina Su ANESTHESIA TYPE: General:No Airway ESTIMATED BLOOD LOSS: 1 PATHOLOGY: other (1. Barretts esophagus) COMPLICATIONS: None DISPOSITION: same day INDICATIONS: Surveillance in Barretts esophagus PROCEDURE DESCRIPTION: Lubricated endoscope was passed through a bite block into the second portion of the duodenum. The endoscope was withdrawn and the duodenum stomach and esophageal mucosa examined. The duodenum appeared normal. There is no inflammation or ulceration or erosion. The antrum appears normal. The fundus appears normal. The cardia appears normal. The endoscope was retroflexed and there is no evidence of hiatal hernia. GE junction is at 38cm from the incisors. The distal esophagus shows chronic change of Barretts metaplasia. The segment is short, extending from 38cm to 36cm. There is slight irregularity in the Z line without nodules or mass lesions. No gross inflammatory changes are seen. Remainder of the esophagus appears normal Cold forceps biopsies obtained from distal esophagus for Barretts surveillance. The upper digestive system was desufflated and the endoscope withdrawn. No complications. Assessment and plan: Barretts esophagus No evidence of gross inflammatory change, nodularity or other concerning findings in the Barretts. The segment is short on examination today, extending 2cm at maximum. Biopsytaken to rule out dysplastic change. Repeat exam in 3 years. Continue PPI daily.
--- NOTE | 2025-08-21 12:39 | W.ANESPOSTOP ---
Postoperative Evaluation Date, Time and Location Date Performed: 08/21/25 Time Performed: 12:39 Patient Location: Day Surgery Unit Vital Signs Most Recent Imported Vital Signs: Most Recent Vital Signs Temp Pulse Resp BP Pulse Ox 36.5 C 47 L 16 107/56 L 98 08/21/25 12:20 08/21/25 12:20 08/21/25 12:20 08/21/25 12:20 08/21/25 12:20 Pain Score Most Recent Pain Score: Most Recent Pain Score Pain Level 4 08/21/25 12:20 Assessment Mental Status: Awake (Alert & Oriented to Patient Baseline) Airway and Respiratory Function: Patent airway with normal (patient baseline) respiratory exam Cardiovascular Function: Hemodynamically Stable Hydration Status: Adequately Hydrated Nausea & Vomiting: No Nausea or Vomiting Pain: Pain is tolerable per patient Peripheral Nerve Block: Patient did not receive a nerve block
[2025-08-21] MEDS: Acetaminophen 325 MG TAB 650 MG PO (12:47)
== END 2025-08-21 12:55 | disposition home or self-care (01) ==
LOC: SUR 08:42
PROVIDERS: PCP Nurse Practitioner Family; Visit Provider Surgery
PROC: (CPT 49591; principal; 2025-08-21 09:45)
DX: K42.9 Umbilical hernia without obstruction or gangrene (principal); L92.8 Other granulomatous disorders of the skin and subcutaneous tissue
CPT/HCPCS: 49591; 11401; 88305; J0690; J2003; J2704